=== PATIENT | male | born 1965 | race American Indian/Alaskan Native ===

== ENCOUNTER 2016-12-02 22:36 | Inpatient (IN) | payer MEDICARE ==
[2016-12-02] MEDS ORDERED: SENOKOT PO PRN (22:40)
[2016-12-02] MEDS ORDERED: DULCOLAX PR PRN (22:40)
[2016-12-02] MEDS ORDERED: TYLENOL FEEDTUBE PRN (22:40)
[2016-12-02] MEDS ORDERED: D50W (25GM) IV PRN (22:40)
[2016-12-03 05:12] LABS: Basophils % (Auto) 1.2 % (0.0-1.8); Eosinophils % (Auto) 1.8 % (0.0-4.3); Hematocrit 40.5 % (35.5-45.6); Hemoglobin 13.5 gm/dl (11.8-15.2); Mean Corpuscular HGB Conc 33 % (32-34); Mean Corpuscular Hemoglobin 30 pg (28-32); Mean Corpuscular Volume 91 fl (84-94); Platelet Count 217 K/mm3 (140-440); Red Blood Count 4.46 M/mm3 (3.65-5.03); Red Cell Distribution Width 13.5 % (13.2-15.2); White Blood Count 8.5 K/mm3 (4.5-11.0)
[2016-12-03 05:34] LABS: Alanine Aminotransferase 31 units/L (7-56); Albumin 3.6 g/dL (3.9-5); Albumin/Globulin Ratio 1.2 %; Alkaline Phosphatase 78 units/L (35-129); Bilirubin,Total 0.3 mg/dL (0.1-1.2); Blood Urea Nitrogen 14 mg/dL (9-20); Carbon Dioxide 26 mmol/L (22-30); Glucose 323 mg/dL (75-100); Total Protein 6.6 g/dL (6.3-8.2)
[2016-12-03 05:35] LABS: Anion Gap 15 mmol/L; Chloride 97.7 mmol/L (98-107); Potassium 4.1 mmol/L (3.6-5.0); Sodium 135 mmol/L (137-145)
[2016-12-03] MEDS: NOVOLOG SUB-Q SCH ×4 (08:56→21:47)
[2016-12-03] MEDS: LYRICA PO SCH ×2 (08:58→10:00)
[2016-12-03] MEDS: ASPIRIN PO SCH (08:58)
[2016-12-03] MEDS: PLAVIX PO SCH (08:59)
[2016-12-03] MEDS: LOVENOX SUB-Q SCH (08:59)
[2016-12-03] MEDS: WELLBUTRIN SR PO SCH (08:59)
[2016-12-03] MEDS: ZESTRIL PO SCH (09:00)
[2016-12-03] MEDS: PROTONIX PO SCH (09:00)
[2016-12-03] MEDS: TRICOR PO SCH (09:01)
[2016-12-03] MEDS: NORVASC PO SCH (09:18)
--- NOTE | 2016-12-03 11:48 | History and Physical Report ---
History of Present Illness Date: 12/03/16 Referring Facility: [facility] Date of admission: 12/02/16 22:36 Chief Complaint: acute CVA at posterior limb of the right internal capsule History of present illness: POST ADMISSION PHYSICIAN EVALUATION ONSET DATE: 11/30/2016 IMPAIRMENT GROUP CODE: 01.1 ETIOLOGIC DIAGNOSIS: acute CVA at posterior limb of the right internal capsule STATUS CHANGES SINCE PREADMISSION SCREENING: PAS has been reviewed. In comparison, pt reports bowel incontinence overnight; blood sugars and blood pressure remain uncontrolled; ongoing left sided weakness and left side neglect noted. Pt was able to participate well with therapy evaluations on today. Pt remains an appropriate candidate for IRU admission. PREVIOUS FUNCTIONAL STATUS: Independent with gait, transfers, ADLs CURRENT FUNCTIONAL STATUS: S/U to totalA for ADLs; maxA for transfers; modA for gait x 10 feet HPI 50 y.o. left handed male admitted for CVA work-up after acute onset of left sided weakness. Work-up positive for acute CVA at posterior limb of the right internal capsule. Pt continued with left sided weakness, mild facial droop, dysarthria; also with uncontrolled blood pressure and blood sugars. Pt is now admitted to IRU for aggressive therapies and ongoing medical management. Past History Past Medical History: diabetes, hypertension, hyperlipidemia Past Surgical History: Other (right lower lobectomy) Social history: smoking, other (lives with roommate; has local family support). denies: alcohol abuse Family history: diabetes, hypertension Medications and Allergies Allergies Allergy/AdvReac Type Severity Reaction Status Date / Time No Known Allergies Allergy Unverified 11/30/16 01:37 Home Medications Medication Instructions Recorded Confirmed Last Taken Type Aspirin [Aspirin TAB] 325 mg PO QDAY #30 tablet 12/02/16 12/02/16 Unknown Rx Bisacodyl [Dulcolax suppos] 10 mg SD QDAY PRN #30 supp.rect 12/02/16 12/02/16 Unknown Rx Clopidogrel [Plavix] 75 mg PO QDAY #30 tablet 12/02/16 12/02/16 Unknown Rx Fenofibrate [Lofibra] 160 mg PO DAILY #30 tablet 12/02/16 12/02/16 Unknown Rx Insulin Detemir [Levemir VIAL] 10 unit SQ QHS #1 vial 12/02/16 12/02/16 Unknown Rx Lisinopril [Zestril TAB] 20 mg PO QDAY #30 tablet 12/02/16 12/02/16 Unknown Rx Metformin HCl [Fortamet ER] 1,000 mg PO BID #60 tab.er.24 12/02/16 12/02/16 Unknown Rx Pantoprazole [Protonix TAB] 20 mg PO QDAY #30 tablet. 12/02/16 12/02/16 Unknown Rx Pregabalin [Lyrica] 75 mg PO DAILY #30 capsule 12/02/16 12/02/16 Unknown Rx Simvastatin [Zocor TAB] 20 mg PO QHS #30 tablet 12/02/16 12/02/16 Unknown Rx buPROPion SR [Wellbutrin SR] 150 mg PO DAILY #30 tablet 12/02/16 12/02/16 Unknown Rx Active Meds: Active Medications Acetaminophen (Tylenol) 650 mg FEEDTUBE Q4H PRN PRN Reason: Pain MILD(1-3)/Fever >100.5/[place] Amlodipine Besylate (Norvasc) 10 mg PO QDAY [facility] Last Admin: 12/03/16 09:18 Dose: 10 mg Aspirin (Aspirin) 325 mg PO QDAY [facility] Last Admin: 12/03/16 08:58 Dose: 325 mg Bisacodyl (Dulcolax) 10 mg SD QDAY PRN PRN Reason: Constipation unrelieved by MOM Bupropion HCl (Wellbutrin Sr) 150 mg PO DAILY [facility] Last Admin: 12/03/16 08:59 Dose: 150 mg Clopidogrel Bisulfate (Plavix) 75 mg PO QDAY [facility] Last Admin: 12/03/16 08:59 Dose: 75 mg Dextrose (D50w (25gm)) 50 ml IV PRN PRN PRN Reason: Hypoglycemia Enoxaparin Sodium (Lovenox) 40 mg SUB-Q QDAY [facility] Last Admin: 12/03/16 08:59 Dose: 40 mg Fenofibrate (Tricor) 145 mg PO DAILY [facility] Last Admin: 12/03/16 09:01 Dose: 145 mg Insulin Aspart (Novolog) 0 units SUB-Q ACHS [facility] PRN Reason: Protocol Last Admin: 12/03/16 08:56 Dose: 3 units Lisinopril (Zestril) 20 mg PO QDAY [facility] Last Admin: 12/03/16 09:00 Dose: 20 mg Metformin HCl (Glucophage Xr) 1,000 mg PO BID [facility] Pantoprazole Sodium (Protonix) 20 mg PO QDAY [facility] Last Admin: 12/03/16 09:00 Dose: 20 mg Pregabalin (Lyrica) 75 mg PO DAILY [facility] Last Admin: 12/03/16 08:58 Dose: 75 mg Senna (Senokot) 8.6 mg PO Q12H PRN PRN Reason: Laxative Effect Simvastatin (Zocor) 20 mg PO QHS [facility] Review of Systems All systems: negative Constitutional: no poor appetite Ears, nose, mouth and throat: no headache Cardiovascular: no chest pain Respiratory: no cough Gastrointestinal: no nausea, no vomiting, no constipation Genitourinary Male: no dysuria Neurological: weakness (left extremities) Exam - Constitutional Vitals: Vital Signs - 12hr 12/03/16 12/03/16 12/03/16 07:30 09:00 09:18 Temperature 97.8 F Pulse Rate 86 86 Pulse Rate [ 86 Right Brachial] Blood Pressure 168/100 168/100 Blood Pressure 168/100 [Right Arm] General appearance: no acute distress, other (sitting up in WC) - EENT Eyes: EOM intact ENT: hearing intact - Neck Neck: supple, normal ROM - Respiratory Respiratory effort: normal Respiratory: bilateral: CTA - Cardiovascular Rhythm: regular Heart Sounds: Present: S1 & S2 - Extremities Extremities: No edema - Gastrointestinal General gastrointestinal: Present: soft, non-tender, non-distended, normal bowel sounds - Integumentary Integumentary: Present: clear - Musculoskeletal Musculoskeletal: left sided weakness (flaccid UE and LE) - Neurologic Neurologic: no CNII-XII intact, other (+facial droop, dysarthria; also with decreased sensation at LLE) - Psychiatric Psychiatric: appropriate mood/affect, intact judgment & insight, memory intact, cooperative - Labs CBC & Chem 7: 12/03/16 04:44 12/03/16 04:44 Labs: Laboratory Results - last 72 hr 12/03/16 12/03/16 12/03/16 04:44 04:44 06:12 WBC 8.5 RBC 4.46 Hgb 13.5 Hct 40.5 MCV 91 MCH 30 MCHC 33 RDW 13.5 Plt Count 217 Lymph % (Auto) 25.2 [place] % (Auto) 10.1 H Eos % (Auto) 1.8 Baso % (Auto) 1.2 Lymph # 2.1 [place] # 0.9 H Eos # 0.2 Baso # 0.1 Seg Neutrophils % 61.7 Seg Neutrophils # 5.3 Sodium 135 L Potassium 4.1 Chloride 97.7 L Carbon Dioxide 26 Anion Gap 15 BUN 14 Creatinine 0.8 Estimated GFR > 60 BUN/Creatinine Ratio 17.50 Glucose 323 H POC Glucose 257 H Calcium 9.0 Total Bilirubin 0.3 AST 24 ALT 31 Alkaline Phosphatase 78 Total Protein 6.6 Albumin 3.6 L Albumin/Globulin Ratio 1.2 Assessment and Plan Assessment and plan: 50 y.o. left handed male with acute CVA at posterior limb of the right internal capsule; left flaccid hemiparesis, dysarthria, gait dysfunction secondary to CVA. The patient is medically stable, however, requires ongoing medical management. Pt is appropriate for inpatient rehabilitation admission and is thought to be able to tolerate at least 3 hours of therapy a day, 5 days a week including 1 hour of physical therapy, 1 hour of occupational therapy, and 1 hour of speech therapy. Patient is able to understand and follow basic directions and has attainable rehab goals. Potential barriers/complications include extension/recurrent CVA, falls, aspiration, DVT, PE, depression, paraasthesias, shoulder subluxation, skin breakdown. Plan 1. Rehabilitation- Pt will undergo multidisciplinary/integrative rehab PT/OT/ INTEGRATION ASSISTANT, Nursing. Areas to be addressed include, but are not limited to PT for mobility, strengthening, transfer training, ROM, endurance, stairs, balance; OT for ADLs, household tasks, adaptive equipment; INTEGRATION ASSISTANT for dysarthria, compensatory techniques; Nursing for carryover of therapies, pain control, education, skin integrity, medication management, bowel/bladder management; Nutrition as needed ; creative services designer for discharge planning and equipment needs. Potential interventions include appropriate assistive device or adaptive equipment. Expected overall level of functional improvement by discharge is [place] to supervision for gait, transfers, and ADLs. Pt will tentatively be discharged home with outpatient PT/OT/INTEGRATION ASSISTANT. Estimated length of stay is 2-3 weeks. 2. s/p CVA- continue ASA and statin 3. HTN- continue lisinopril; restart norvasc 4. DM- continue metformin; restart levemir, slowly increase as needed; ADA diet 5. HLD- statin, tricor 6. DVT px- lovenox - Patient Problems (1) CVA (cerebral vascular accident) Current Visit: No Status: Acute Qualifiers: CVA mechanism: other Precerebral and cerebral artery: P Laterality of affected vessel: L Qualified Code(s): I63.8 - Other cerebral infarction (2) Hemiparesis affecting left side as late effect of cerebrovascular accident Current Visit: Yes Status: Acute (3) Left foot drop Current Visit: Yes Status: Acute (4) HLD (hyperlipidemia) Current Visit: Yes Status: Chronic Qualifiers: Hyperlipidemia type: mixed hyperlipidemia Qualified Code(s): E78.2 - Mixed hyperlipidemia (5) HTN (hypertension) Current Visit: Yes Status: Chronic Qualifiers: Hypertension type: essential hypertension Qualified Code(s): I10 - Essential (primary) hypertension (6) Diabetes Current Visit: Yes Status: Chronic Qualifiers: Diabetes mellitus type: type 2 Diabetes mellitus complication status: with hyperglycemia Diabetes mellitus complication detail: D Diabetic retinopathy severity: D Proliferative retinopathy type: P Diabetes mellitus macular edema: D Diabetes mellitus detention insulin use: with detention use Laterality: L Chronic kidney disease stage: C Qualified Code(s): E11.65 - Type 2 diabetes mellitus with hyperglycemia; Z79.4 - custodial (current) use of insulin
[2016-12-03] MEDS: GLUCOPHAGE XR PO SCH ×2 (12:52→21:46)
--- NOTE | 2016-12-03 18:06 | Progress Note ---
Subjective - Reason for Consult Consult date: 12/03/16 Reason for consult: psychiatric follow-up - Chief Complaint Chief complaint: Mr. Locke was seen after arrival on the medical floor for CVA. Initial psychiatric consultation was done for concerns with altered mental status concerns with delirium. Since then he has been alert and oriented and without concerns for confusion or unusual behavior. Mental Status Exam - Vital signs Last Vital Signs Temp 97.8 F 12/03/16 07:30 Pulse 92 H 12/03/16 16:00 Resp 20 12/03/16 16:00 BP 147/97 12/03/16 16:00 Pulse Ox 99 12/03/16 16:00 - Exam Narrative exam: Left hemiparesis No suicidal or homicidal ideation. No auditory or visual hallucinations. He denies depression or anxiety. Orientation: time, place, person Affect: normal Mood: appropriate Thought content: other (no suicidal or homicidal ideation) Thought Process: Intact Perceptions: none Speech: normal rate and pattern Concentration: focused Motor activity: other (affected by CVA) Level of consciousness: alert Memory: Intact Sleep Symptoms: None Interaction: cooperative Assessment and Plan At this time, Mr. Navarro no longer needs psychiatric services. Evaluation for concerns with delirium and altered mental status has been resolved. Recommendation: Consider consultation with psychiatry again if needed, particularly for post stroke depression, changes in behavior, or change in mental status.
[2016-12-03] MEDS: LEVEMIR SUB-Q SCH (21:46)
[2016-12-03] MEDS: ZOCOR PO SCH (21:46)
[2016-12-04] MEDS: LOVENOX SUB-Q SCH (08:28)
[2016-12-04] MEDS: NOVOLOG SUB-Q SCH ×4 (08:29→23:46)
[2016-12-04] MEDS: GLUCOPHAGE XR PO SCH ×2 (08:30→23:38)
[2016-12-04] MEDS: PLAVIX PO SCH (08:30)
[2016-12-04] MEDS: PROTONIX PO SCH (08:31)
[2016-12-04] MEDS: ZESTRIL PO SCH (08:31)
[2016-12-04] MEDS: NORVASC PO SCH (08:32)
[2016-12-04] MEDS: ASPIRIN PO SCH (08:34)
[2016-12-04] MEDS: TRICOR PO SCH (09:08)
[2016-12-04] MEDS: LYRICA PO SCH (09:08)
[2016-12-04] MEDS: WELLBUTRIN SR PO SCH (09:09)
--- NOTE | 2016-12-04 09:37 | IRU Plan of Care ---
Interdisciplinary Plan of Care - IP IRU INTERDISCIPLINARY PLAN: [facility] Inpatient Rehab Unit Plan of Care IRU Interdisciplinary Care Plan Start: 12/02/16 22: 45 Freq: Admission then PRN Status: Active Document 12/04/16 09:18 DB (Rec: 12/04/16 09:35 DB [id number]) Interdisciplinary Problem List Interdisciplinary Problem List Interdisciplinary Problem List Impaired Eating/Swallowing Query Text:Answers will Trigger Problems Impaired Bathing/Grooming and Outcomes on Worklist. Impaired Dressing Impaired Mobility Impaired Transfers Impaired Problem Solving Impaired Memory Impaired Home Management Impaired Safety IRU Interdisciplinary Care Plan Therapy Services Therapy Services Will Include: Physical Therapy Query Text:Patient will be seen for a Occupational Therapy minimum of 3 hours of daily therapy 5 Speech Therapy out of 7 days a week. Therapy intensity may be adjusted within a 7 consecutive day period to effectively serve the individual needs of the patient. Treatment Frequency/Intensity/Duration Treatment Frequency 5 days per week Treatment Intensity 1 hour per discipline (PT/OT/ AUTOMATION TECHNOLOGIST) daily Treatment Duration 10-14 days Problem Area: Eating/Swallowing Eating/Swallowing Outcomes Consume Least Restrictive Diet Eating/Swallowing Interventions Dysphagia Training Patient/Caregiver Education Problem Area: Bathing/Grooming Bathing/Grooming Outcomes Improve [place] w/ Grooming Improve [place] w/ Bathing Bathing/Grooming Interventions ADL Training Use of Assistive Devices Therapeutic Activity Balance Work Activity Tolerance Work Patient/Caregiver Education Problem Area: Dressing Dressing Outcomes Improve [place] w/ UB Dressing Improve Spencer w/ LB Dressing Dressing Interventions ADL Training Patient/Caregiver Education Problem Area: Mobility Mobility Outcomes Improve [place] w/ Bed Mobility Improve Spencer w/ Ambulation Improve Spencer w/ Stairs /Curb Improve Spencer w/ Wheelchair Mobility Interventions Therapeutic Exercise Neuromuscular Re-Ed. Modalities Use of Assistive Devices Patient/Caregiver Education Bed Mobility Work Gait Training W/C Mobility Work Problem Area: Transfers Transfers Outcomes Improve [place] w/ Bed Transfers Improve Spencer w/ Toilet Transfers Improve Spencer w/ Tub/ Shower Transfers Improve [place] w/ Car Transfers Transfers Interventions Transfer Training Therapeutic Exercise Neuromuscular Re-Education Modalities Use of Assistive Devices Patient/Caregiver Education Problem Area: Bowel/Bladder Managment Bowel/Bladder Outcomes Bowel/Bladder Interventions Problem Area: Toileting Toileting Outcomes Improve Spencer w/ Toileting Toileting Interventions ADL Training Balance Work Patient/Caregiver Education Problem Area: Nutrition Nutrition Outcomes Understand and Comply w/ Diet Improve/Maintain Oral Intake Nutrition Interventions Nutritional Counseling Monitor Nutrient Intake Patient/Caregiver Education Problem Area: Comprehension Comprehension Outcomes Comprehension Interventions Problem Area: Expression Expression Outcomes Expression Interventions Problem Area: Problem Solving Problem Solving Outcomes Improve Problem Solving Problem Solving Interventions Cognitive Training Visual/Perceptual Training Safety Education Patient/Caregiver Education Problem Area: Memory Memory Outcomes Memory Interventions Problem Area: Pain Management Pain Management Outcomes Demonstrate/Verbalize Pain Strategies Pain Management Interventions Medication Management Positioning/Turning Patient/Caregiver Education Problem Area: Knowledge Deficits Knowledge Deficits Outcomes Verbalize Precautions Knowledge Deficits Interventions Disease/Injury/Sx. Intervention Education Body Mechanics/Joint Protection Education Disease Management Education Health Maintainence Education Safety Education Problem Area: Skin/Tissue Integrity Skin/Tissue Integrity Outcomes Exhibit Healing of Wound/ Incision Demonstrate Understanding of Pressure Relief Skin/Tissue Integrity Interventions Skin/Wound Care Pressure Relief Instruction Dressing Change Education Positioning/Turning Problem Area: Social Interaction Social Interaction Outcomes Social Interaction Interventions Problem Area: Adjustment to Disability Adjustment to Disability Outcomes Adjustment to Disability Interventions Problem Area: Discharge Concerns Discharge Concerns Outcomes Discharge Home w/ Necessary Equipment Have Home Health/Outpatient Services Discharge Concerns Interventions Discharge Planning Family/Caregiver Conference Family/Caregiver Training Problem Area: Community Reintegration Community Reintegration Outcomes Demonstrate Understanding of Community Resources Community Reintegration Interventions Provide Community Resources Problem Area: Home Management Home Management Outcomes Improve Spencer w/ Home Management Home Management Interventions Activity Tolerance Work Patient/Caregiver Education Problem Area: Safety Safety Outcomes Provide Safe Environment Perform Selfcare Safely Safety Interventions Identify Fall Risk [place] Pt. to Environment Reduce Environmental Hazards Problem Area: Medication Education Medication Education Outcomes Patient/Caregiver will Verbalize Understanding of Medications Medication Education Interventions Explain Administration/Side Effects/Interactions Problem Area: Diabetes Education Diabetes Education Outcomes Demonstrate Knowledge of Resources Availlable in Diabetic Ed. Folder Diabetes Education Interventions Give Pt. Diabetes Education Folder Discuss Pathophysiology of Diabetes Problem Area: Oxygenation Oxygenation Outcomes Oxygenation Interventions Problem Area: Cardiovascular Cardiovascular Outcomes Cardiovascular Interventions Physician Only Medical Prognosis and Rehabilitation Patient demonstrates good Potential (Completed by Physician) rehab potential. Medical Prognosis: Good This plan of care has been developed based on the findings from the pre- admission assessment, post admission physician evaluation, information gathered from the assessments from all therapy disciplines and other pertinent clinicians. The plan of care has been reviewed and discussed in collaboration with the interdisciplinary team. The plan of care will be reviewed and updated at least weekly. 50 y.o. left handed male with acute CVA at posterior limb of the right internal capsule; left flaccid hemiparesis, dysarthria, gait dysfunction secondary to CVA. The patient remains at risk for extension/recurrent CVA, falls, aspiration , DVT, PE, depression, parasthesias, shoulder subluxation, skin breakdown. Pt will need ongoing management of HTN and DM; currently tolerating therapies. Pt continues with left sided weakness and functional deficits. Pt remains an appropriate candidate for IRU admission.
[2016-12-04] MEDS ORDERED: FLUARIX QUAD 2016-2017(36 MOS+) IM ONE ×2 (12:00→17:00)
--- NOTE | 2016-12-04 13:41 | Progress Note ---
Assessment and Plan 50 y.o. left handed male with acute CVA at posterior limb of the right internal capsule; left flaccid hemiparesis, dysarthria, gait dysfunction secondary to CVA - s/p CVA- ASA, statin - HTN- continue lisinopril and norvasc - DM- continue metformin; levemir restarted on yesterday, follow and slowly increase as needed; ADA diet - DVT px- lovenox - team conference held on today- pt is supervision for eating; Shyla for grooming , modA for bathing, maxA fro UB Dressing, transfers, bed mobility, and gait; ambulating 15 feet with HW and AFO; totalA for LB dressing and toileting; maxA for problem solving and memory. Barriers- left sided weakness, left side neglect. Anticipated d/c 12/23/2016 - Patient Problems (1) CVA (cerebral vascular accident) Current Visit: No Status: Acute Qualifiers: CVA mechanism: other Precerebral and cerebral artery: P Laterality of affected vessel: L Qualified Code(s): I63.8 - Other cerebral infarction (2) Hemiparesis affecting left side as late effect of cerebrovascular accident Current Visit: Yes Status: Acute (3) Left foot drop Current Visit: Yes Status: Acute (4) HTN (hypertension) Current Visit: Yes Status: Chronic Qualifiers: Hypertension type: essential hypertension Qualified Code(s): I10 - Essential (primary) hypertension (5) Diabetes Current Visit: Yes Status: Chronic Qualifiers: Diabetes mellitus type: type 2 Diabetes mellitus complication status: with hyperglycemia Diabetes mellitus complication detail: D Diabetic retinopathy severity: D Proliferative retinopathy type: P Diabetes mellitus macular edema: D Diabetes mellitus vermin exterminator insulin use: with mcfp use Laterality: L Chronic kidney disease stage: C Qualified Code(s): E11.65 - Type 2 diabetes mellitus with hyperglycemia; Z79.4 - intermodal customer service (current) use of insulin Subjective Date of service: 12/04/16 Principal diagnosis: acute CVA at posterior limb of the right internal capsule Interval history: Pt seen in dining room this AM, F/U IPR course, s/p acute CVA at posterior limb of the right internal capsule. Pt reports mild lightheadedness with standing on today Objective - Constitutional Vitals: Vital Signs - 12hr 12/04/16 12/04/16 12/04/16 08:31 08:32 08:55 Temperature Pulse Rate 83 83 Pulse Rate [ 83 Apical] Respiratory Rate Blood Pressure 149/94 149/94 Blood Pressure [Right Arm] O2 Sat by Pulse Oximetry 12/04/16 12/04/16 10:00 10:20 Temperature 98.1 F Pulse Rate Pulse Rate [ 83 83 Apical] Respiratory 20 Rate Blood Pressure Blood Pressure 149/54 [Right Arm] O2 Sat by Pulse 99 Oximetry General appearance: Present: no acute distress, other (seated in WC) - EENT Eyes: EOM intact ENT: hearing intact - Neck Neck: supple, normal ROM - Respiratory Respiratory effort: normal Extremities: No edema Extremity abnormal: other (no pain with LUE PROM; no spasticity noted) - Integumentary Integumentary: clear - Musculoskeletal Musculoskeletal: left sided weakness - Psychiatric Psychiatric: appropriate mood/affect, cooperative - Labs CBC & Chem 7: 12/03/16 04:44 12/03/16 04:44 Labs: Abnormal lab results 12/03/16 12/03/16 Range/Units 16:39 21:05 POC Glucose 250 H 247 H (70-105)
[2016-12-04] MEDS: ZOCOR PO SCH (23:37)
[2016-12-04] MEDS: LEVEMIR SUB-Q SCH (23:45)
[2016-12-05] MEDS ORDERED: ZESTRIL PO SCH (08:49)
[2016-12-05] MEDS: NOVOLOG SUB-Q SCH ×3 (09:51→17:47)
[2016-12-05] MEDS: TRICOR PO SCH (10:02)
[2016-12-05] MEDS: ASPIRIN PO SCH (10:03)
[2016-12-05] MEDS: LYRICA PO SCH (10:03)
[2016-12-05] MEDS: NORVASC PO SCH (10:03)
[2016-12-05] MEDS: PROTONIX PO SCH (10:03)
[2016-12-05] MEDS: PLAVIX PO SCH (10:03)
[2016-12-05] MEDS: GLUCOPHAGE XR PO SCH (10:04)
[2016-12-05] MEDS: LOVENOX SUB-Q SCH (10:04)
[2016-12-05] MEDS: WELLBUTRIN SR PO SCH (10:04)
[2016-12-05] MEDS: ZESTRIL PO SCH ×2 (10:20→13:17)
--- NOTE | 2016-12-05 16:28 | Progress Note ---
Assessment and Plan 50 y.o. left handed male with acute CVA at posterior limb of the right internal capsule; left flaccid hemiparesis, dysarthria, gait dysfunction secondary to CVA - s/p CVA- ASA, statin - gait dysfunction secondary to CVA- ambulated up to 15 feet; ongoing gait training - LE spasms secondary to CVA- add Baclofen QHS; follow for lethargy - HTN- elevated; lisinopril increased on today; follow - DM- will increase Levemir for better glucose control - DVT px- lovenox - Patient Problems (1) CVA (cerebral vascular accident) Current Visit: No Status: Acute Qualifiers: CVA mechanism: other Precerebral and cerebral artery: P Laterality of affected vessel: L Qualified Code(s): I63.8 - Other cerebral infarction (2) Hemiparesis affecting left side as late effect of cerebrovascular accident Current Visit: Yes Status: Acute (3) Left foot drop Current Visit: Yes Status: Acute (4) HTN (hypertension) Current Visit: Yes Status: Chronic Qualifiers: Hypertension type: essential hypertension Qualified Code(s): I10 - Essential (primary) hypertension (5) Diabetes Current Visit: Yes Status: Chronic Qualifiers: Diabetes mellitus type: type 2 Diabetes mellitus complication status: with hyperglycemia Diabetes mellitus complication detail: D Diabetic retinopathy severity: D Proliferative retinopathy type: P Diabetes mellitus macular edema: D Diabetes mellitus mcfp insulin use: with petroleum terminal plant operator use Laterality: L Chronic kidney disease stage: C Qualified Code(s): E11.65 - Type 2 diabetes mellitus with hyperglycemia; Z79.4 - middle or intermediate school principal (current) use of insulin (6) Abnormality of gait following cerebrovascular accident (CVA) Current Visit: Yes Status: Acute (7) Muscle spasm of left lower extremity Current Visit: Yes Status: Acute Subjective Date of service: 12/05/16 Principal diagnosis: acute CVA at posterior limb of the right internal capsule Interval history: Pt seen in ASSESSMENT CONSULTANT on today, F/U IPR course, s/p acute CVA at posterior limb of the right internal capsule. No further dizziness/lightheadedness; reports spasms in left extremities at night interrupting ability to sleep Objective - Constitutional Vitals: Vital Signs - 12hr 12/05/16 12/05/16 07:19 10:03 Temperature 98.4 F Pulse Rate 88 Pulse Rate [ 88 Right Brachial] Respiratory 20 Rate Blood Pressure 156/92 Blood Pressure 156/92 [Right Arm] O2 Sat by Pulse 100 Oximetry General appearance: Present: no acute distress - EENT Eyes: EOM intact ENT: hearing intact - Neck Neck: supple, normal ROM - Respiratory Respiratory effort: normal Extremities: No edema - Integumentary Integumentary: clear - Musculoskeletal Musculoskeletal: left sided weakness - Psychiatric Psychiatric: appropriate mood/affect, cooperative - Allied health notes Allied health notes reviewed: OT (min-modA for UB dressing and transfers) - Labs CBC & Chem 7: 12/03/16 04:44 12/03/16 04:44
[2016-12-05] MEDS: LIORESAL PO SCH (22:00)
[2016-12-06] MEDS: LEVEMIR SUB-Q SCH ×2 (00:10→21:54)
[2016-12-06] MEDS: LOVENOX SUB-Q SCH (09:32)
[2016-12-06] MEDS: LYRICA PO SCH (09:32)
[2016-12-06] MEDS: TRICOR PO SCH (09:32)
[2016-12-06] MEDS: PROTONIX PO SCH (09:33)
[2016-12-06] MEDS: NORVASC PO SCH (09:33)
[2016-12-06] MEDS: ASPIRIN PO SCH (09:33)
[2016-12-06] MEDS: ZESTRIL PO SCH (09:34)
[2016-12-06] MEDS: PLAVIX PO SCH (09:34)
[2016-12-06] MEDS: GLUCOPHAGE XR PO SCH ×2 (09:36→21:53)
[2016-12-06] MEDS: NOVOLOG SUB-Q SCH ×5 (09:36→21:54)
[2016-12-06] MEDS: WELLBUTRIN SR PO SCH (12:32)
[2016-12-06] MEDS: LIORESAL PO SCH (21:52)
[2016-12-06] MEDS: ZOCOR PO SCH (21:53)
[2016-12-07] MEDS: PLAVIX PO SCH (08:47)
[2016-12-07] MEDS: NOVOLOG SUB-Q SCH ×4 (08:47→22:23)
[2016-12-07] MEDS: PROTONIX PO SCH (08:48)
[2016-12-07] MEDS: ZESTRIL PO SCH (08:48)
[2016-12-07] MEDS: NORVASC PO SCH (08:49)
[2016-12-07] MEDS: ASPIRIN PO SCH (08:49)
[2016-12-07] MEDS: LOVENOX SUB-Q SCH (08:51)
[2016-12-07] MEDS: GLUCOPHAGE XR PO SCH ×2 (08:51→22:21)
[2016-12-07] MEDS: WELLBUTRIN SR PO SCH (09:01)
[2016-12-07] MEDS: LYRICA PO SCH (09:01)
[2016-12-07] MEDS: TRICOR PO SCH (09:02)
[2016-12-07] MEDS: LIORESAL PO SCH (22:20)
[2016-12-07] MEDS: ZOCOR PO SCH (22:23)
[2016-12-07] MEDS: LEVEMIR SUB-Q SCH (22:26)
[2016-12-08] MEDS: NOVOLOG SUB-Q SCH ×3 (07:30→16:30)
[2016-12-08] MEDS: GLUCOPHAGE XR PO SCH ×3 (09:47→21:39)
[2016-12-08] MEDS: LYRICA PO SCH (09:47)
[2016-12-08] MEDS: PLAVIX PO SCH (09:48)
[2016-12-08] MEDS: ASPIRIN PO SCH (09:48)
[2016-12-08] MEDS: LOVENOX SUB-Q SCH (09:48)
[2016-12-08] MEDS: TRICOR PO SCH (09:48)
[2016-12-08] MEDS: PROTONIX PO SCH (09:55)
[2016-12-08] MEDS: NORVASC PO SCH (09:55)
[2016-12-08] MEDS: WELLBUTRIN SR PO SCH (09:56)
[2016-12-08] MEDS: HCTZ PO SCH (10:02)
[2016-12-08] MEDS: ZESTRIL PO SCH (10:03)
--- NOTE | 2016-12-08 15:43 | Progress Note ---
Assessment and Plan 50 y.o. left handed male with acute CVA at posterior limb of the right internal capsule; left flaccid hemiparesis, dysarthria, gait dysfunction secondary to CVA - s/p CVA- ASA, statin - gait dysfunction secondary to CVA- ongoing gait training; progress from parallel bars to assistive device - LE spasms secondary to CVA- increase Baclofen to 10mg QHS; follow for lethargy - HTN- remains elevated; HCTZ added on today; follow - DM- increase Levemir towards home dose for better glucose control - DVT px- lovenox - Patient Problems (1) CVA (cerebral vascular accident) Current Visit: No Status: Acute Qualifiers: CVA mechanism: other Precerebral and cerebral artery: P Laterality of affected vessel: L Qualified Code(s): I63.8 - Other cerebral infarction (2) Hemiparesis affecting left side as late effect of cerebrovascular accident Current Visit: Yes Status: Acute (3) Left foot drop Current Visit: Yes Status: Acute (4) HTN (hypertension) Current Visit: Yes Status: Chronic Qualifiers: Hypertension type: essential hypertension Qualified Code(s): I10 - Essential (primary) hypertension (5) Diabetes Current Visit: Yes Status: Chronic Qualifiers: Diabetes mellitus type: type 2 Diabetes mellitus complication status: with hyperglycemia Diabetes mellitus complication detail: D Diabetic retinopathy severity: D Proliferative retinopathy type: P Diabetes mellitus macular edema: D Diabetes mellitus group home insulin use: with adjunct faculty for medical terminology use Laterality: L Chronic kidney disease stage: C Qualified Code(s): E11.65 - Type 2 diabetes mellitus with hyperglycemia; Z79.4 - [facility] (current) use of insulin (6) Abnormality of gait following cerebrovascular accident (CVA) Current Visit: Yes Status: Acute (7) Muscle spasm of left lower extremity Current Visit: Yes Status: Acute Subjective Date of service: 12/08/16 Principal diagnosis: acute CVA at posterior limb of the right internal capsule Interval history: Pt seen in room on today, F/U IPR course, s/p acute CVA at posterior limb of the right internal capsule. Continues with intermittent spasms at left extremities Objective - Constitutional Vitals: Vital Signs - 12hr 12/08/16 12/08/16 12/08/16 07:30 09:55 10:03 Temperature 97.6 F Pulse Rate 84 84 Pulse Rate [ 92 H Right Brachial] Respiratory 20 Rate Blood Pressure 160/110 [Right Arm] O2 Sat by Pulse 98 Oximetry General appearance: Present: no acute distress - EENT Eyes: EOM intact ENT: hearing intact - Neck Neck: supple, normal ROM - Respiratory Respiratory effort: normal Respiratory: bilateral: CTA - Cardiovascular Rhythm: regular Heart Sounds: Present: S1 & S2 Extremities: No edema - Gastrointestinal General gastrointestinal: Present: soft, non-tender, non-distended, normal bowel sounds - Integumentary Integumentary: clear - Musculoskeletal Musculoskeletal: left sided weakness - Psychiatric Psychiatric: appropriate mood/affect, cooperative - Allied health notes Allied health notes reviewed: PT (modA for transfers; supervision for wheelchair mobility), OT (min-maxA for ADLs) - Labs CBC & Chem 7: 12/03/16 04:44 12/03/16 04:44 Labs: Abnormal lab results 12/02/16 12/04/16 12/04/16 Range/Units 21:39 06:31 11:53 POC Glucose 256 H 231 H 209 H (70-105) 12/04/16 12/04/16 12/05/16 Range/Units 17:00 21:21 06:43 POC Glucose 232 H 358 H 280 H (70-105) 12/05/16 12/05/16 12/05/16 Range/Units 11:56 16:50 21:09 POC Glucose 225 H 190 H 270 H (70-105) 12/06/16 12/06/16 12/06/16 Range/Units 06:55 11:39 16:32 POC Glucose 204 H 302 H 159 H (70-105) 12/06/16 12/07/16 12/07/16 Range/Units 21:14 06:28 11:31 POC Glucose 111 H 326 H 215 H (70-105) 12/07/16 12/07/16 12/08/16 Range/Units 16:37 21:31 06:55 POC Glucose 234 H 266 H 241 H (70-105) 12/08/16 Range/Units 12:00 POC Glucose 234 H (70-105)
[2016-12-08] MEDS: LIORESAL PO SCH (21:38)
[2016-12-08] MEDS: ZOCOR PO SCH (21:39)
[2016-12-08] MEDS: LEVEMIR SUB-Q SCH (22:26)
[2016-12-09] MEDS: NORVASC PO SCH (08:45)
[2016-12-09] MEDS: PLAVIX PO SCH (08:46)
[2016-12-09] MEDS: HCTZ PO SCH (08:46)
[2016-12-09] MEDS: PROTONIX PO SCH (08:46)
[2016-12-09] MEDS: ZESTRIL PO SCH (08:46)
[2016-12-09] MEDS: LOVENOX SUB-Q SCH (08:47)
[2016-12-09] MEDS: GLUCOPHAGE XR PO SCH ×2 (08:47→21:37)
[2016-12-09] MEDS: NOVOLOG SUB-Q SCH ×5 (08:48→21:34)
[2016-12-09] MEDS: ASPIRIN PO SCH (08:52)
[2016-12-09] MEDS: TRICOR PO SCH (09:21)
[2016-12-09] MEDS: LYRICA PO SCH (09:21)
[2016-12-09] MEDS: WELLBUTRIN SR PO SCH (09:21)
--- NOTE | 2016-12-09 15:57 | Progress Note ---
Assessment and Plan 50 y.o. left handed male with acute CVA at posterior limb of the right internal capsule; left flaccid hemiparesis, dysarthria, gait dysfunction secondary to CVA - s/p CVA- ASA, statin - gait dysfunction secondary to CVA- modA for 18 feet on today with HW; continue gait training with PT - LE spasms secondary to CVA- maintain Baclofen at 10mg QHS - HTN- stable on current regimen; continue to follow - DM- slowly improving; continue on 20U levemir; adjust as needed - DVT px- lovenox - Patient Problems (1) CVA (cerebral vascular accident) Current Visit: No Status: Acute Qualifiers: CVA mechanism: other Precerebral and cerebral artery: P Laterality of affected vessel: L Qualified Code(s): I63.8 - Other cerebral infarction (2) Hemiparesis affecting left side as late effect of cerebrovascular accident Current Visit: Yes Status: Acute (3) Left foot drop Current Visit: Yes Status: Acute (4) HTN (hypertension) Current Visit: Yes Status: Chronic Qualifiers: Hypertension type: essential hypertension Qualified Code(s): I10 - Essential (primary) hypertension (5) Diabetes Current Visit: Yes Status: Chronic Qualifiers: Diabetes mellitus type: type 2 Diabetes mellitus complication status: with hyperglycemia Diabetes mellitus complication detail: D Diabetic retinopathy severity: D Proliferative retinopathy type: P Diabetes mellitus macular edema: D Diabetes mellitus long-term insulin use: with long-term use Laterality: L Chronic kidney disease stage: C Qualified Code(s): E11.65 - Type 2 diabetes mellitus with hyperglycemia; Z79.4 - home health clinician (current) use of insulin (6) Abnormality of gait following cerebrovascular accident (CVA) Current Visit: Yes Status: Acute (7) Muscle spasm of left lower extremity Current Visit: Yes Status: Acute Subjective Date of service: 12/09/16 Principal diagnosis: acute CVA at posterior limb of the right internal capsule Interval history: Pt seen in room on today, F/U IPR course, s/p acute CVA at posterior limb of the right internal capsule. Reports much improved sleep on yesterday Objective - Constitutional Vitals: Vital Signs - 12hr 12/09/16 12/09/16 07:28 08:45 Temperature 98.0 F Pulse Rate 86 Pulse Rate [ 86 Right Brachial] Respiratory 18 Rate Blood Pressure 152/92 Blood Pressure 152/92 [Right Arm] O2 Sat by Pulse 100 Oximetry General appearance: Present: no acute distress, other (sitting up in WC) - EENT Eyes: EOM intact ENT: hearing intact - Neck Neck: supple, normal ROM - Respiratory Respiratory effort: normal - Integumentary Integumentary: clear - Musculoskeletal Musculoskeletal: left sided weakness - Psychiatric Psychiatric: appropriate mood/affect, cooperative - Allied health notes Allied health notes reviewed: PT (CGA-SBA for transfers; modA for gait), OT (SBA -maxA for ADLs) - Labs CBC & Chem 7: 12/03/16 04:44 12/03/16 04:44 Labs: Abnormal lab results 12/08/16 12/08/16 12/08/16 Range/Units 12:00 16:54 21:58 POC Glucose 234 H 182 H 243 H (70-105) 12/09/16 12/09/16 Range/Units 06:27 12:05 POC Glucose 261 H 191 H (70-105)
[2016-12-09] MEDS: LEVEMIR SUB-Q SCH (21:33)
[2016-12-09] MEDS: LIORESAL PO SCH (21:34)
[2016-12-09] MEDS: ZOCOR PO SCH (21:35)
[2016-12-10] MEDS: NOVOLOG SUB-Q SCH ×4 (08:48→21:37)
[2016-12-10] MEDS: GLUCOPHAGE XR PO SCH ×2 (08:48→21:35)
[2016-12-10] MEDS: ZESTRIL PO SCH (08:49)
[2016-12-10] MEDS: LOVENOX SUB-Q SCH (08:49)
[2016-12-10] MEDS: ASPIRIN PO SCH (08:49)
[2016-12-10] MEDS: HCTZ PO SCH (08:49)
[2016-12-10] MEDS: NORVASC PO SCH (08:50)
[2016-12-10] MEDS: PLAVIX PO SCH (08:50)
[2016-12-10] MEDS: PROTONIX PO SCH (08:50)
[2016-12-10] MEDS: WELLBUTRIN SR PO SCH (09:03)
[2016-12-10] MEDS: LYRICA PO SCH (09:03)
[2016-12-10] MEDS: TRICOR PO SCH (09:03)
--- NOTE | 2016-12-10 11:47 | Progress Note ---
Assessment and Plan 50 y.o. left handed male with acute CVA at posterior limb of the right internal capsule; left flaccid hemiparesis, dysarthria, gait dysfunction secondary to CVA - s/p CVA- ASA, statin - gait dysfunction secondary to CVA- progressed from parallel bars to kendal- walker on yesterday; ongoing gait training - left foot drop- will likely require AFO at discharge - LE spasms secondary to CVA- stable on Baclofen 10mg QHS - HTN- stable - DM- education provided; continue on 20U levemir; follow blood sugars - DVT px- lovenox - Patient Problems (1) CVA (cerebral vascular accident) Current Visit: No Status: Acute Qualifiers: CVA mechanism: other Precerebral and cerebral artery: P Laterality of affected vessel: L Qualified Code(s): I63.8 - Other cerebral infarction (2) Hemiparesis affecting left side as late effect of cerebrovascular accident Current Visit: Yes Status: Acute (3) Left foot drop Current Visit: Yes Status: Acute (4) HTN (hypertension) Current Visit: Yes Status: Chronic Qualifiers: Hypertension type: essential hypertension Qualified Code(s): I10 - Essential (primary) hypertension (5) Diabetes Current Visit: Yes Status: Chronic Qualifiers: Diabetes mellitus type: type 2 Diabetes mellitus complication status: with hyperglycemia Diabetes mellitus complication detail: D Diabetic retinopathy severity: D Proliferative retinopathy type: P Diabetes mellitus macular edema: D Diabetes mellitus manager intermediate insulin use: with fci use Laterality: L Chronic kidney disease stage: C Qualified Code(s): E11.65 - Type 2 diabetes mellitus with hyperglycemia; Z79.4 - [facility] (current) use of insulin (6) Abnormality of gait following cerebrovascular accident (CVA) Current Visit: Yes Status: Acute (7) Muscle spasm of left lower extremity Current Visit: Yes Status: Acute Subjective Date of service: 12/10/16 Principal diagnosis: acute CVA at posterior limb of the right internal capsule Interval history: Pt seen in room this AM, F/U IPR course, s/p acute CVA at posterior limb of the right internal capsule. Diabetes education provided this AM Objective - Constitutional Vitals: Vital Signs - 12hr 12/10/16 12/10/16 12/10/16 08:15 08:49 08:50 Temperature 97.8 F Pulse Rate 86 86 Pulse Rate [ 85 Apical] Pulse Rate [ Right Brachial] Respiratory 20 Rate Blood Pressure 140/80 140/80 Blood Pressure 151/100 [Right Arm] O2 Sat by Pulse 99 Oximetry 12/10/16 10:00 Temperature Pulse Rate Pulse Rate [ Apical] Pulse Rate [ 96 H Right Brachial] Respiratory 20 Rate Blood Pressure Blood Pressure [Right Arm] O2 Sat by Pulse 100 Oximetry General appearance: Present: no acute distress - EENT Eyes: EOM intact ENT: hearing intact - Neck Neck: supple, normal ROM - Respiratory Respiratory effort: normal Extremities: No edema - Gastrointestinal General gastrointestinal: Present: soft, non-tender - Integumentary Integumentary: clear - Musculoskeletal Musculoskeletal: left sided weakness (LUE flaccid; LLE- 2/5, except trace ankle dorsiflexion) - Psychiatric Psychiatric: appropriate mood/affect, cooperative - Allied health notes Allied health notes reviewed: OT (Shyla for bathing and dressing; modA for shower transfers; supervision for grooming) - Labs CBC & Chem 7: 12/03/16 04:44 12/03/16 04:44 Labs: Abnormal lab results 12/09/16 12/09/16 12/09/16 Range/Units 12:05 17:24 21:11 POC Glucose 191 H 108 H 205 H (70-105) 12/10/16 12/10/16 Range/Units 06:03 11:22 POC Glucose 318 H 185 H (70-105)
[2016-12-10] MEDS: LIORESAL PO SCH (21:35)
[2016-12-10] MEDS: LEVEMIR SUB-Q SCH (21:35)
[2016-12-10] MEDS: ZOCOR PO SCH (21:36)
[2016-12-11] MEDS: ASPIRIN PO SCH (08:59)
[2016-12-11] MEDS: GLUCOPHAGE XR PO SCH ×2 (08:59→21:48)
[2016-12-11] MEDS: HCTZ PO SCH (08:59)
[2016-12-11] MEDS: NOVOLOG SUB-Q SCH ×4 (09:01→21:50)
[2016-12-11] MEDS: TRICOR PO SCH (09:02)
[2016-12-11] MEDS: PROTONIX PO SCH (09:02)
[2016-12-11] MEDS: NORVASC PO SCH (09:02)
[2016-12-11] MEDS: LYRICA PO SCH (09:02)
[2016-12-11] MEDS: ZESTRIL PO SCH (09:03)
[2016-12-11] MEDS: PLAVIX PO SCH (09:03)
[2016-12-11] MEDS: WELLBUTRIN SR PO SCH (09:04)
[2016-12-11] MEDS: LOVENOX SUB-Q SCH (09:04)
--- NOTE | 2016-12-11 14:58 | Progress Note ---
Assessment and Plan 50 y.o. left handed male with acute CVA at posterior limb of the right internal capsule; left flaccid hemiparesis, dysarthria, gait dysfunction secondary to CVA - s/p CVA- ASA, statin - gait dysfunction secondary to CVA- maxA with gait - left foot drop- AFO ordered on today - LE spasms secondary to CVA- stable on Baclofen 10mg QHS - HTN- good control - DM- maintain on current regimen; adjust insulin as needed - DVT px- lovenox - team conference held on today- At last conference held on 01/04, pt was noted to require supervision for eating; Shyla for grooming, modA for bathing, maxA for UB Dressing, transfers, bed mobility, and gait; ambulate 15 feet with HW and AFO; totalA for LB dressing and toileting; maxA for problem solving and memory. On today, pt has progressed to s/u for grooming, Shyla for bathing and dressing; modA for toilet/shower transfers and bed mobility; maxA for toileting ; Shyla for bed/chair/WC transfers; Isreal for WC mobility; ambulating 25 feet with HW/AFO/knee immobilizer at maxA; Shyla for problem solving and memory. Anticipated d/c date remains 12/23/2016. - Patient Problems (1) CVA (cerebral vascular accident) Current Visit: No Status: Acute Qualifiers: CVA mechanism: other Precerebral and cerebral artery: P Laterality of affected vessel: L Qualified Code(s): I63.8 - Other cerebral infarction (2) Hemiparesis affecting left side as late effect of cerebrovascular accident Current Visit: Yes Status: Acute (3) Left foot drop Current Visit: Yes Status: Acute (4) HTN (hypertension) Current Visit: Yes Status: Chronic Qualifiers: Hypertension type: essential hypertension Qualified Code(s): I10 - Essential (primary) hypertension (5) Diabetes Current Visit: Yes Status: Chronic Qualifiers: Diabetes mellitus type: type 2 Diabetes mellitus complication status: with hyperglycemia Diabetes mellitus complication detail: D Diabetic retinopathy severity: D Proliferative retinopathy type: P Diabetes mellitus macular edema: D Diabetes mellitus tank terminal gauger insulin use: with chcf use Laterality: L Chronic kidney disease stage: C Qualified Code(s): E11.65 - Type 2 diabetes mellitus with hyperglycemia; Z79.4 - termite treater (current) use of insulin (6) Abnormality of gait following cerebrovascular accident (CVA) Current Visit: Yes Status: Acute (7) Muscle spasm of left lower extremity Current Visit: Yes Status: Acute Subjective Date of service: 12/11/16 Principal diagnosis: acute CVA at posterior limb of the right internal capsule Interval history: Pt seen after lunch on today, F/U IPR course, s/p acute CVA at posterior limb of the right internal capsule. Pt reports constipation on this AM; last BM on yesterday, requests stool softener Objective - Constitutional Vitals: Vital Signs - 12hr 12/11/16 12/11/16 08:00 09:02 Temperature 97.7 F Pulse Rate 88 Pulse Rate [ 88 Right Brachial] Respiratory 20 Rate Blood Pressure 139/87 Blood Pressure 139/87 [Right Arm] O2 Sat by Pulse 100 Oximetry General appearance: Present: no acute distress - EENT Eyes: EOM intact ENT: hearing intact - Neck Neck: supple, normal ROM - Respiratory Respiratory effort: normal - Gastrointestinal General gastrointestinal: Present: soft, non-tender - Integumentary Integumentary: clear - Musculoskeletal Musculoskeletal: left sided weakness - Psychiatric Psychiatric: appropriate mood/affect, cooperative - Labs CBC & Chem 7: 12/03/16 04:44 12/03/16 04:44 Labs: Abnormal lab results 12/10/16 12/10/16 12/11/16 Range/Units 16:25 21:31 06:16 POC Glucose 200 H 143 H 220 H (70-105)
[2016-12-11] MEDS: COLACE PO SCH ×2 (15:46→21:49)
[2016-12-11] MEDS: LEVEMIR SUB-Q SCH (21:48)
[2016-12-11] MEDS: ZOCOR PO SCH (21:49)
[2016-12-11] MEDS: LIORESAL PO SCH (21:49)
[2016-12-12] MEDS: ASPIRIN PO SCH (08:00)
[2016-12-12] MEDS: LYRICA PO SCH (08:49)
[2016-12-12] MEDS: HCTZ PO SCH (08:49)
[2016-12-12] MEDS: PLAVIX PO SCH (08:50)
[2016-12-12] MEDS: GLUCOPHAGE XR PO SCH ×2 (08:50→23:38)
[2016-12-12] MEDS: NORVASC PO SCH (08:51)
[2016-12-12] MEDS: TRICOR PO SCH (08:51)
[2016-12-12] MEDS: WELLBUTRIN SR PO SCH (08:52)
[2016-12-12] MEDS: PROTONIX PO SCH (08:52)
[2016-12-12] MEDS: COLACE PO SCH ×2 (08:52→23:37)
--- NOTE | 2016-12-12 13:53 | Progress Note ---
Assessment and Plan 50 y.o. left handed male with acute CVA at posterior limb of the right internal capsule; left flaccid hemiparesis, dysarthria, gait dysfunction secondary to CVA - s/p CVA- ASA, statin - gait dysfunction secondary to CVA with left foot drop- ongoing gait training with PT - LE spasms secondary to CVA- Baclofen QHS - HTN- stable - DM- ongoing education due to pt eating snacks in room periodically; continue to follow blood glucose - DVT px- lovenox - Patient Problems (1) CVA (cerebral vascular accident) Current Visit: No Status: Acute Qualifiers: CVA mechanism: other Precerebral and cerebral artery: P Laterality of affected vessel: L Qualified Code(s): I63.8 - Other cerebral infarction (2) Hemiparesis affecting left side as late effect of cerebrovascular accident Current Visit: Yes Status: Acute (3) Left foot drop Current Visit: Yes Status: Acute (4) HTN (hypertension) Current Visit: Yes Status: Chronic Qualifiers: Hypertension type: essential hypertension Qualified Code(s): I10 - Essential (primary) hypertension (5) Diabetes Current Visit: Yes Status: Chronic Qualifiers: Diabetes mellitus type: type 2 Diabetes mellitus complication status: with hyperglycemia Diabetes mellitus complication detail: D Diabetic retinopathy severity: D Proliferative retinopathy type: P Diabetes mellitus macular edema: D Diabetes mellitus bed bug exterminator insulin use: with bed bug exterminator use Laterality: L Chronic kidney disease stage: C Qualified Code(s): E11.65 - Type 2 diabetes mellitus with hyperglycemia; Z79.4 - bed bug exterminator (current) use of insulin (6) Abnormality of gait following cerebrovascular accident (CVA) Current Visit: Yes Status: Acute (7) Muscle spasm of left lower extremity Current Visit: Yes Status: Acute Subjective Date of service: 12/12/16 Principal diagnosis: acute CVA at posterior limb of the right internal capsule Interval history: Pt seen in room on today, F/U IPR course, s/p acute CVA at posterior limb of the right internal capsule. No new complaints; ongoing DM education provided to pt; still has crackers in room causing blood sugars to elevate. +BM on today Objective - Constitutional Vitals: Vital Signs - 12hr 12/12/16 12/12/16 08:00 08:51 Temperature 97.6 F Pulse Rate 83 Pulse Rate [ 83 Right Brachial] Respiratory 18 Rate Blood Pressure 140/90 Blood Pressure 140/90 [Right Arm] O2 Sat by Pulse 99 Oximetry General appearance: Present: no acute distress - EENT Eyes: EOM intact ENT: hearing intact - Neck Neck: supple, normal ROM - Respiratory Respiratory effort: normal Respiratory: bilateral: CTA - Cardiovascular Rhythm: regular Heart Sounds: Present: S1 & S2 Extremities: No edema - Gastrointestinal General gastrointestinal: Present: soft, non-tender, non-distended, normal bowel sounds - Integumentary Integumentary: clear - Musculoskeletal Musculoskeletal: left sided weakness - Psychiatric Psychiatric: appropriate mood/affect, cooperative - Allied health notes Allied health notes reviewed: nursing (min-maxA for morning ADLs), ST (CGA for toilet transfers; dependent for toileting) - Labs CBC & Chem 7: 12/03/16 04:44 12/03/16 04:44 Labs: Abnormal lab results 12/11/16 12/11/16 12/11/16 Range/Units 11:44 16:43 21:16 POC Glucose 140 H 228 H 218 H (70-105) 12/12/16 12/12/16 Range/Units 06:20 11:40 POC Glucose 170 H 252 H (70-105)
[2016-12-12] MEDS: NOVOLOG SUB-Q SCH ×2 (23:35→23:36)
[2016-12-12] MEDS: ZOCOR PO SCH (23:45)
[2016-12-12] MEDS: LEVEMIR SUB-Q SCH (23:46)
[2016-12-12] MEDS: LIORESAL PO SCH (23:46)
[2016-12-13] MEDS: NOVOLOG SUB-Q SCH ×4 (08:03→21:46)
[2016-12-13] MEDS: LOVENOX SUB-Q SCH (08:56)
[2016-12-13] MEDS: GLUCOPHAGE XR PO SCH ×2 (08:56→21:44)
[2016-12-13] MEDS: PLAVIX PO SCH (08:57)
[2016-12-13] MEDS: ASPIRIN PO SCH (08:57)
[2016-12-13] MEDS: HCTZ PO SCH (08:57)
[2016-12-13] MEDS: PROTONIX PO SCH (08:58)
[2016-12-13] MEDS: COLACE PO SCH ×2 (08:58→21:45)
[2016-12-13] MEDS: ZESTRIL PO SCH (08:58)
[2016-12-13] MEDS: NORVASC PO SCH (08:59)
[2016-12-13] MEDS: WELLBUTRIN SR PO SCH (08:59)
[2016-12-13] MEDS: TRICOR PO SCH (09:00)
[2016-12-13] MEDS: LYRICA PO SCH (09:00)
[2016-12-13] MEDS: LIORESAL PO SCH (21:44)
[2016-12-13] MEDS: ZOCOR PO SCH (21:45)
[2016-12-13] MEDS: LEVEMIR SUB-Q SCH (21:45)
[2016-12-14] MEDS: GLUCOPHAGE XR PO SCH ×2 (08:19→21:24)
[2016-12-14] MEDS: ASPIRIN PO SCH (08:20)
[2016-12-14] MEDS: WELLBUTRIN SR PO SCH ×2 (08:20→09:38)
[2016-12-14] MEDS: PLAVIX PO SCH (08:20)
[2016-12-14] MEDS: COLACE PO SCH ×2 (08:20→21:25)
[2016-12-14] MEDS: HCTZ PO SCH (08:20)
[2016-12-14] MEDS: PROTONIX PO SCH (08:21)
[2016-12-14] MEDS: NORVASC PO SCH (08:21)
[2016-12-14] MEDS: ZESTRIL PO SCH (08:21)
[2016-12-14] MEDS: NOVOLOG SUB-Q SCH ×4 (08:22→21:25)
[2016-12-14] MEDS: LOVENOX SUB-Q SCH (08:23)
[2016-12-14] MEDS: TRICOR PO SCH (09:36)
[2016-12-14] MEDS: LYRICA PO SCH (09:37)
[2016-12-14] MEDS: LIORESAL PO SCH (21:24)
[2016-12-14] MEDS: ZOCOR PO SCH (21:24)
[2016-12-14] MEDS: LEVEMIR SUB-Q SCH (21:56)
[2016-12-15 05:06] LABS: Hematocrit 40.1 % (35.5-45.6); Hemoglobin 13.6 gm/dl (11.8-15.2); Mean Corpuscular HGB Conc 34 % (32-34); Mean Corpuscular Hemoglobin 31 pg (28-32); Mean Corpuscular Volume 90 fl (84-94); Platelet Count 278 K/mm3 (140-440); Red Blood Count 4.46 M/mm3 (3.65-5.03); Red Cell Distribution Width 13.1 % (13.2-15.2)
[2016-12-15 05:31] LABS: Anion Gap 19 mmol/L; BUN/Creatinine Ratio 21.81; Blood Urea Nitrogen 24 mg/dL (9-20); Calcium 9.6 mg/dL (8.4-10.2); Carbon Dioxide 24 mmol/L (22-30); Chloride 102.2 mmol/L (98-107); Glucose 217 mg/dL (75-100); Potassium 4.4 mmol/L (3.6-5.0); Sodium 141 mmol/L (137-145)
[2016-12-15] MEDS: COLACE PO SCH ×2 (08:30→21:20)
[2016-12-15] MEDS: NOVOLOG SUB-Q SCH ×4 (09:00→21:19)
[2016-12-15] MEDS: ASPIRIN PO SCH (09:01)
[2016-12-15] MEDS: HCTZ PO SCH (09:02)
[2016-12-15] MEDS: LYRICA PO SCH (09:02)
[2016-12-15] MEDS: PROTONIX PO SCH (09:02)
[2016-12-15] MEDS: TRICOR PO SCH (09:02)
[2016-12-15] MEDS: ZESTRIL PO SCH (09:02)
[2016-12-15] MEDS: PLAVIX PO SCH (09:02)
[2016-12-15] MEDS: GLUCOPHAGE XR PO SCH ×2 (09:03→21:20)
[2016-12-15] MEDS: NORVASC PO SCH (09:04)
[2016-12-15] MEDS: WELLBUTRIN SR PO SCH (09:04)
[2016-12-15] MEDS: LOVENOX SUB-Q SCH (09:05)
--- NOTE | 2016-12-15 12:23 | Progress Note ---
Assessment and Plan 50 y.o. left handed male with acute CVA at posterior limb of the right internal capsule; left flaccid hemiparesis, dysarthria, gait dysfunction secondary to CVA - s/p CVA- ASA, statin - gait dysfunction secondary to CVA with left foot drop- Pending AFO; continue gait training - LE spasms secondary to CVA- Baclofen QHS - HTN- stable - DM- improved blood sugars; continue current regimen and adjust as needed - DVT px- lovenox - Patient Problems (1) CVA (cerebral vascular accident) Current Visit: No Status: Acute Qualifiers: CVA mechanism: other Precerebral and cerebral artery: P Laterality of affected vessel: L Qualified Code(s): I63.8 - Other cerebral infarction (2) Hemiparesis affecting left side as late effect of cerebrovascular accident Current Visit: Yes Status: Acute (3) Left foot drop Current Visit: Yes Status: Acute (4) HTN (hypertension) Current Visit: Yes Status: Chronic Qualifiers: Hypertension type: essential hypertension Qualified Code(s): I10 - Essential (primary) hypertension (5) Diabetes Current Visit: Yes Status: Chronic Qualifiers: Diabetes mellitus type: type 2 Diabetes mellitus complication status: with hyperglycemia Diabetes mellitus complication detail: D Diabetic retinopathy severity: D Proliferative retinopathy type: P Diabetes mellitus macular edema: D Diabetes mellitus termite renewal inspector insulin use: with termite renewal inspector use Laterality: L Chronic kidney disease stage: C Qualified Code(s): E11.65 - Type 2 diabetes mellitus with hyperglycemia; Z79.4 - detention (current) use of insulin (6) Abnormality of gait following cerebrovascular accident (CVA) Current Visit: Yes Status: Acute (7) Muscle spasm of left lower extremity Current Visit: Yes Status: Acute Subjective Date of service: 12/15/16 Principal diagnosis: acute CVA at posterior limb of the right internal capsule Interval history: Pt seen in [facility] this AM, F/U IPR course, s/p acute CVA at posterior limb of the right internal capsule. Continues to tolerate therapies; improved blood sugars over weekend, pt reports eliminating snacks in room Objective - Constitutional Vitals: Vital Signs - 12hr 12/15/16 12/15/16 12/15/16 08:00 09:02 09:04 Temperature 97.6 F Pulse Rate 88 88 Pulse Rate [ 88 Right Brachial] Respiratory 20 Rate Blood Pressure 150/97 150/97 Blood Pressure 150/97 [Right Arm] O2 Sat by Pulse 99 Oximetry General appearance: Present: no acute distress - EENT Eyes: EOM intact ENT: hearing intact - Neck Neck: supple, normal ROM - Respiratory Respiratory effort: normal Respiratory: bilateral: CTA - Cardiovascular Rhythm: regular Heart Sounds: Present: S1 & S2 Extremities: No edema - Gastrointestinal General gastrointestinal: Present: soft, non-tender, non-distended, normal bowel sounds - Integumentary Integumentary: clear - Musculoskeletal Musculoskeletal: left sided weakness (LUE remains flaccid; no pain with PROM in LUE) - Neurologic Neurologic: other (mild facial droop and dysarthria) - Psychiatric Psychiatric: appropriate mood/affect, cooperative - Allied health notes Allied health notes reviewed: nursing (supervision-modA for AM ADLs) - Labs CBC & Chem 7: 12/15/16 04:40 12/15/16 04:40 Labs: Abnormal lab results 12/14/16 12/14/16 12/14/16 Range/Units 12:22 16:57 20:39 RDW (13.2-15.2) % BUN (9-20) mg/dL Glucose (75-100) mg/dL POC Glucose 224 H 175 H 185 H (70-105) 12/15/16 12/15/16 12/15/16 Range/Units 04:40 04:40 05:58 RDW 13.1 L (13.2-15.2) % BUN 24 H (9-20) mg/dL Glucose 217 H (75-100) mg/dL POC Glucose 175 H (70-105) 12/15/16 Range/Units 11:26 RDW (13.2-15.2) % BUN (9-20) mg/dL Glucose (75-100) mg/dL POC Glucose 211 H (70-105)
[2016-12-15] MEDS: LEVEMIR SUB-Q SCH (21:19)
[2016-12-15] MEDS: ZOCOR PO SCH (21:20)
[2016-12-15] MEDS: LIORESAL PO SCH (21:20)
[2016-12-16] MEDS: NORVASC PO SCH (08:10)
[2016-12-16] MEDS: HCTZ PO SCH (08:10)
[2016-12-16] MEDS: PROTONIX PO SCH (08:10)
[2016-12-16] MEDS: LOVENOX SUB-Q SCH (08:10)
[2016-12-16] MEDS: ASPIRIN PO SCH (08:10)
[2016-12-16] MEDS: PLAVIX PO SCH (08:10)
[2016-12-16] MEDS: WELLBUTRIN SR PO SCH ×2 (08:11→10:40)
[2016-12-16] MEDS: COLACE PO SCH (08:12)
[2016-12-16] MEDS: ZESTRIL PO SCH (08:14)
[2016-12-16] MEDS: NOVOLOG SUB-Q SCH ×2 (08:15→12:30)
[2016-12-16] MEDS: GLUCOPHAGE XR PO SCH ×2 (08:17→22:42)
[2016-12-16] MEDS: LYRICA PO SCH ×2 (08:17→10:40)
--- NOTE | 2016-12-16 10:28 | Progress Note ---
Assessment and Plan 50 y.o. left handed male with acute CVA at posterior limb of the right internal capsule; left flaccid hemiparesis, dysarthria, gait dysfunction secondary to CVA - s/p CVA- ASA, statin - gait dysfunction secondary to CVA with left foot drop- ambulating up to 60 feet, maxA - LE spasms secondary to CVA- [place]acl[place] QHS - HTN- stable - DM- stable; continue to follow - DVT px- lovenox - Patient Problems (1) CVA (cerebral vascular accident) Current Visit: No Status: Acute Qualifiers: CVA mechanism: other Precerebral and cerebral artery: P Laterality of affected vessel: L Qualified Code(s): I63.8 - Other cerebral infarction (2) Hemiparesis affecting left side as late effect of cerebrovascular accident Current Visit: Yes Status: Acute (3) Left foot drop Current Visit: Yes Status: Acute (4) HTN (hypertension) Current Visit: Yes Status: Chronic Qualifiers: Hypertension type: essential hypertension Qualified Code(s): I10 - Essential (primary) hypertension (5) Diabetes Current Visit: Yes Status: Chronic Qualifiers: Diabetes mellitus type: type 2 Diabetes mellitus complication status: with hyperglycemia Diabetes mellitus complication detail: D Diabetic retinopathy severity: D Proliferative retinopathy type: P Diabetes mellitus macular edema: D Diabetes mellitus equipment operator intermodal yard insulin use: with equipment operator intermodal yard use Laterality: L Chronic kidney disease stage: C Qualified Code(s): E11.65 - Type 2 diabetes mellitus with hyperglycemia; Z79.4 - technician terminal and repeater (current) use of insulin (6) Abnormality of gait following cerebrovascular accident (CVA) Current Visit: Yes Status: Acute (7) Muscle spasm of left lower extremity Current Visit: Yes Status: Acute Subjective Date of service: 12/16/16 Principal diagnosis: acute CVA at posterior limb of the right internal capsule Interval history: Pt seen in [facility] this AM, F/U IPR course, s/p acute CVA at posterior limb of the right internal capsule. No new complaints on today; continues to sleep well, no further awakening from spasms. Objective - Constitutional Vitals: Vital Signs - 12hr 12/16/16 12/16/16 12/16/16 08:00 08:10 08:14 Temperature 97.7 F Pulse Rate 86 86 Pulse Rate [ 86 Apical] Respiratory 18 Rate Blood Pressure 158/94 158/94 Blood Pressure 158/94 [Right Arm] General appearance: Present: no acute distress - EENT Eyes: EOM intact ENT: hearing intact - Neck Neck: supple, normal ROM - Respiratory Respiratory effort: normal Extremities: No edema - Integumentary Integumentary: clear - Musculoskeletal Musculoskeletal: left sided weakness (2/5 left hip flexion, knee extension; ongoing foot drop) - Psychiatric Psychiatric: appropriate mood/affect, cooperative - Allied health notes Allied health notes reviewed: PT (Shyla for transfers; maxA for gait), OT (Isreal to maxA for ADLs) - Labs CBC & Chem 7: 12/15/16 04:40 12/15/16 04:40 Labs: Abnormal lab results 12/15/16 12/15/16 12/15/16 Range/Units 11:26 16:33 20:43 POC Glucose 211 H 162 H 239 H (70-105) 12/16/16 Range/Units 06:30 POC Glucose 181 H (70-105)
[2016-12-16] MEDS: TRICOR PO SCH (12:27)
[2016-12-16] MEDS: ZOCOR PO SCH (22:41)
[2016-12-16] MEDS: LIORESAL PO SCH (22:41)
[2016-12-16] MEDS: LEVEMIR SUB-Q SCH (22:42)
[2016-12-17] MEDS: NOVOLOG SUB-Q SCH ×6 (09:00→23:30)
[2016-12-17] MEDS: GLUCOPHAGE XR PO SCH ×2 (09:01→21:57)
[2016-12-17] MEDS: PLAVIX PO SCH (09:01)
[2016-12-17] MEDS: HCTZ PO SCH (09:01)
[2016-12-17] MEDS: PROTONIX PO SCH (09:01)
[2016-12-17] MEDS: LOVENOX SUB-Q SCH (09:01)
[2016-12-17] MEDS: ASPIRIN PO SCH (09:01)
[2016-12-17] MEDS: TRICOR PO SCH (09:02)
[2016-12-17] MEDS: WELLBUTRIN SR PO SCH (09:02)
[2016-12-17] MEDS: NORVASC PO SCH (09:02)
[2016-12-17] MEDS: LYRICA PO SCH (09:02)
[2016-12-17] MEDS: ZESTRIL PO SCH (09:03)
[2016-12-17] MEDS: COLACE PO SCH ×2 (09:04→21:57)
--- NOTE | 2016-12-17 16:28 | Progress Note ---
Assessment and Plan 50 y.o. left handed male with acute CVA at posterior limb of the right internal capsule; left flaccid hemiparesis, dysarthria, gait dysfunction secondary to CVA - s/p CVA- ASA, statin; some return of strength at LLE, LUE remains flaccid - gait dysfunction secondary to CVA with left foot drop- ongoing difficulty with weight shifting - LE spasms secondary to CVA- [place] QHS - HTN- stable - DM- stable; continue to follow - DVT px- lovenox - Patient Problems (1) CVA (cerebral vascular accident) Current Visit: No Status: Acute Qualifiers: CVA mechanism: other Precerebral and cerebral artery: P Laterality of affected vessel: L Qualified Code(s): I63.8 - Other cerebral infarction (2) Hemiparesis affecting left side as late effect of cerebrovascular accident Current Visit: Yes Status: Acute (3) Left foot drop Current Visit: Yes Status: Acute (4) HTN (hypertension) Current Visit: Yes Status: Chronic Qualifiers: Hypertension type: essential hypertension Qualified Code(s): I10 - Essential (primary) hypertension (5) Diabetes Current Visit: Yes Status: Chronic Qualifiers: Diabetes mellitus type: type 2 Diabetes mellitus complication status: with hyperglycemia Diabetes mellitus complication detail: D Diabetic retinopathy severity: D Proliferative retinopathy type: P Diabetes mellitus macular edema: D Diabetes mellitus manager long term care insulin use: with retirement use Laterality: L Chronic kidney disease stage: C Qualified Code(s): E11.65 - Type 2 diabetes mellitus with hyperglycemia; Z79.4 - FDC (current) use of insulin (6) Abnormality of gait following cerebrovascular accident (CVA) Current Visit: Yes Status: Acute (7) Muscle spasm of left lower extremity Current Visit: Yes Status: Acute Subjective Date of service: 12/17/16 Principal diagnosis: acute CVA at posterior limb of the right internal capsule Interval history: Pt seen in dining room this afternoon, F/U IPR course, s/p acute CVA at posterior limb of the right internal capsule. Observed episode of coughing on water; pt reports this is the first time since admission; will need to continue to follow closely Objective - Constitutional Vitals: Vital Signs - 12hr 12/17/16 12/17/16 12/17/16 08:00 09:02 10:00 Pulse Rate 90 Pulse Rate [ 85 90 Right Brachial] Respiratory 20 Rate Blood Pressure 133/86 Blood Pressure 142/80 [Right Arm] O2 Sat by Pulse 94 99 Oximetry - EENT Eyes: EOM intact ENT: hearing intact - Neck Neck: supple, normal ROM - Respiratory Respiratory effort: normal Extremities: No edema - Gastrointestinal General gastrointestinal: Present: soft, non-tender, non-distended - Integumentary Integumentary: clear - Musculoskeletal Musculoskeletal: left sided weakness - Psychiatric Psychiatric: appropriate mood/affect, cooperative - Allied health notes Allied health notes reviewed: PT (min-modA for transfers), OT (maxA for clothing management during ADLs; Shyla for toilet transfer) - Labs CBC & Chem 7: 12/15/16 04:40 12/15/16 04:40 Labs: Abnormal lab results 12/16/16 12/17/16 12/17/16 Range/Units 21:33 06:28 12:05 POC Glucose 200 H 185 H 189 H (70-105)
[2016-12-17] MEDS: LEVEMIR SUB-Q SCH (21:53)
[2016-12-17] MEDS: LIORESAL PO SCH (21:57)
[2016-12-17] MEDS: ZOCOR PO SCH (21:57)
[2016-12-18 05:25] LABS: Anion Gap 20 mmol/L; Blood Urea Nitrogen 28 mg/dL (9-20); Calcium 9.6 mg/dL (8.4-10.2); Carbon Dioxide 24 mmol/L (22-30); Chloride 101.5 mmol/L (98-107); Glucose 320 mg/dL (75-100); Potassium 4.3 mmol/L (3.6-5.0); Sodium 141 mmol/L (137-145)
[2016-12-18] MEDS: NORVASC PO SCH (09:03)
[2016-12-18] MEDS: GLUCOPHAGE XR PO SCH ×2 (09:03→21:21)
[2016-12-18] MEDS: PLAVIX PO SCH (09:04)
[2016-12-18] MEDS: TRICOR PO SCH (09:04)
[2016-12-18] MEDS: HCTZ PO SCH (09:04)
[2016-12-18] MEDS: ASPIRIN PO SCH (09:04)
[2016-12-18] MEDS: ZESTRIL PO SCH (09:04)
[2016-12-18] MEDS: PROTONIX PO SCH (09:04)
[2016-12-18] MEDS: COLACE PO SCH ×3 (09:04→21:21)
[2016-12-18] MEDS: LOVENOX SUB-Q SCH (09:05)
[2016-12-18] MEDS: WELLBUTRIN SR PO SCH (09:05)
[2016-12-18] MEDS: NOVOLOG SUB-Q SCH ×4 (09:13→21:39)
[2016-12-18] MEDS: LYRICA PO SCH (12:54)
--- NOTE | 2016-12-18 16:19 | Progress Note ---
Assessment and Plan 50 y.o. left handed male with acute CVA at posterior limb of the right internal capsule; left flaccid hemiparesis, dysarthria, gait dysfunction secondary to CVA - s/p CVA- ASA, statin; some return of strength at LLE, LUE remains flaccid - gait dysfunction secondary to CVA with left foot drop- maxA for gait, up to 35 feet - LE spasms secondary to CVA- [place] QHS - HTN- stable - DM- elevated this AM; follow and increase insulin as needed - DVT px- lovenox - team conference held on today- last conference was held on 12/11; at that time , pt required s/u for grooming, Shyla for bathing and dressing; modA for toilet/ shower transfers and bed mobility; maxA for toileting; Shyla for bed/chair/WC transfers; Isreal for WC mobility; ambulating 25 feet with HW/AFO/knee immobilizer at maxA; Shyla for problem solving and memory. On today, pt remains Shyla for bathing and dressing, maxA for toileting, modA for bed mobility; min- modA for bed/chair/WC transfers, Shyla for toilet/shower transfers; ambulating up to 35 feet maxA with HW and AFO; Isreal for memory and supervision for problem solving. Pt continues to have intermittent bowel/bladder accidents. Anticipated D/C date remains at 12/23/2016. - Patient Problems (1) CVA (cerebral vascular accident) Current Visit: No Status: Acute Qualifiers: CVA mechanism: other Precerebral and cerebral artery: P Laterality of affected vessel: L Qualified Code(s): I63.8 - Other cerebral infarction (2) Hemiparesis affecting left side as late effect of cerebrovascular accident Current Visit: Yes Status: Acute (3) Left foot drop Current Visit: Yes Status: Acute (4) HTN (hypertension) Current Visit: Yes Status: Chronic Qualifiers: Hypertension type: essential hypertension Qualified Code(s): I10 - Essential (primary) hypertension (5) Diabetes Current Visit: Yes Status: Chronic Qualifiers: Diabetes mellitus type: type 2 Diabetes mellitus complication status: with hyperglycemia Diabetes mellitus complication detail: D Diabetic retinopathy severity: D Proliferative retinopathy type: P Diabetes mellitus macular edema: D Diabetes mellitus ferry terminal agent insulin use: with fpc use Laterality: L Chronic kidney disease stage: C Qualified Code(s): E11.65 - Type 2 diabetes mellitus with hyperglycemia; Z79.4 - intermediate project manager (current) use of insulin (6) Abnormality of gait following cerebrovascular accident (CVA) Current Visit: Yes Status: Acute (7) Muscle spasm of left lower extremity Current Visit: Yes Status: Acute (8) Bowel and bladder incontinence Current Visit: Yes Status: Acute Subjective Date of service: 12/18/16 Principal diagnosis: acute CVA at posterior limb of the right internal capsule Interval history: Pt seen in room this AM, F/U IPR course, s/p acute CVA at posterior limb of the right internal capsule. No further coughing reported with thin liquids. Otherwise, no acute events Objective - Constitutional Vitals: Vital Signs - 12hr 12/18/16 12/18/16 12/18/16 08:00 09:03 10:00 Temperature 97.9 F Pulse Rate 88 Pulse Rate [ 88 88 Right Brachial] Respiratory 18 Rate Blood Pressure 126/84 Blood Pressure 126/84 [Right Arm] O2 Sat by Pulse 100 100 Oximetry General appearance: Present: no acute distress, other (sitting up on edge of bed ) - EENT Eyes: EOM intact ENT: hearing intact - Neck Neck: supple, normal ROM - Respiratory Respiratory effort: normal Extremities: No edema - Integumentary Integumentary: clear - Musculoskeletal Musculoskeletal: left sided weakness - Psychiatric Psychiatric: appropriate mood/affect, cooperative - Labs CBC & Chem 7: 12/15/16 04:40 12/18/16 04:44 Labs: Abnormal lab results 12/17/16 12/17/16 12/18/16 Range/Units 16:14 20:56 04:44 BUN 28 H (9-20) mg/dL Glucose 320 H (75-100) mg/dL POC Glucose 119 H 201 H (70-105) 12/18/16 12/18/16 Range/Units 06:06 12:23 BUN (9-20) mg/dL Glucose (75-100) mg/dL POC Glucose 270 H 150 H (70-105)
[2016-12-18] MEDS: ZOCOR PO SCH (21:20)
[2016-12-18] MEDS: LIORESAL PO SCH (21:20)
[2016-12-18] MEDS: LEVEMIR SUB-Q SCH (21:23)
[2016-12-19] MEDS: NOVOLOG SUB-Q SCH ×3 (09:00→18:09)
[2016-12-19] MEDS: NORVASC PO SCH (09:01)
[2016-12-19] MEDS: PLAVIX PO SCH (09:02)
[2016-12-19] MEDS: ASPIRIN PO SCH (09:02)
[2016-12-19] MEDS: GLUCOPHAGE XR PO SCH ×2 (09:02→21:48)
[2016-12-19] MEDS: COLACE PO SCH ×2 (09:02→21:49)
[2016-12-19] MEDS: HCTZ PO SCH (09:03)
[2016-12-19] MEDS: ZESTRIL PO SCH (09:03)
[2016-12-19] MEDS: WELLBUTRIN SR PO SCH (09:03)
[2016-12-19] MEDS: PROTONIX PO SCH (09:03)
[2016-12-19] MEDS: LOVENOX SUB-Q SCH (09:03)
[2016-12-19] MEDS: LYRICA PO SCH (09:07)
[2016-12-19] MEDS: TRICOR PO SCH (09:08)
--- NOTE | 2016-12-19 14:45 | Progress Note ---
Assessment and Plan 50 y.o. left handed male with acute CVA at posterior limb of the right internal capsule; left flaccid hemiparesis, dysarthria, gait dysfunction secondary to CVA - s/p CVA- ASA, statin; ongoing left sided weakness - gait dysfunction secondary to CVA with left foot drop- continue gait training with PT - LE spasms secondary to CVA- [place] QHS - HTN/DM- stable on current regimen - DVT px- lovenox - Patient Problems (1) CVA (cerebral vascular accident) Current Visit: No Status: Acute Qualifiers: CVA mechanism: other Precerebral and cerebral artery: P Laterality of affected vessel: L Qualified Code(s): I63.8 - Other cerebral infarction (2) Hemiparesis affecting left side as late effect of cerebrovascular accident Current Visit: Yes Status: Acute (3) Left foot drop Current Visit: Yes Status: Acute (4) HTN (hypertension) Current Visit: Yes Status: Chronic Qualifiers: Hypertension type: essential hypertension Qualified Code(s): I10 - Essential (primary) hypertension (5) Diabetes Current Visit: Yes Status: Chronic Qualifiers: Diabetes mellitus type: type 2 Diabetes mellitus complication status: with hyperglycemia Diabetes mellitus complication detail: D Diabetic retinopathy severity: D Proliferative retinopathy type: P Diabetes mellitus macular edema: D Diabetes mellitus shelter insulin use: with intermission coordinator use Laterality: L Chronic kidney disease stage: C Qualified Code(s): E11.65 - Type 2 diabetes mellitus with hyperglycemia; Z79.4 - custodial (current) use of insulin (6) Abnormality of gait following cerebrovascular accident (CVA) Current Visit: Yes Status: Acute (7) Muscle spasm of left lower extremity Current Visit: Yes Status: Acute (8) Bowel and bladder incontinence Current Visit: Yes Status: Acute Subjective Date of service: 12/19/16 Principal diagnosis: acute CVA at posterior limb of the right internal capsule Interval history: Pt seen in room this AM, F/U IPR course, s/p acute CVA at posterior limb of the right internal capsule. no acute events overnight; sleeping well, spasms now well controlled Objective - Constitutional Vitals: Vital Signs - 12hr 12/19/16 12/19/16 12/19/16 07:56 09:01 10:00 Temperature 97.5 F L Pulse Rate 88 Pulse Rate [ 88 88 Right Brachial] Respiratory 18 20 Rate Blood Pressure 120/72 Blood Pressure 120/72 [Right Arm] O2 Sat by Pulse 98 98 Oximetry General appearance: Present: no acute distress, other (sitting up in WC) - EENT Eyes: EOM intact ENT: hearing intact - Neck Neck: supple, normal ROM - Respiratory Respiratory effort: normal Respiratory: bilateral: CTA - Cardiovascular Rhythm: regular Heart Sounds: Present: S1 & S2 Extremities: No edema - Gastrointestinal General gastrointestinal: Present: soft, non-tender, non-distended, normal bowel sounds - Integumentary Integumentary: clear - Musculoskeletal Musculoskeletal: left sided weakness - Psychiatric Psychiatric: appropriate mood/affect, cooperative - Allied health notes Allied health notes reviewed: ST (improving memory/recall), OT (SBA for shower/ toilet transfers, dressing) - Labs CBC & Chem 7: 12/15/16 04:40 12/18/16 04:44 Labs: Abnormal lab results 12/18/16 12/18/16 12/19/16 Range/Units 16:32 20:46 05:59 POC Glucose 241 H 199 H 194 H (70-105) 12/19/16 Range/Units 12:20 POC Glucose 197 H (70-105)
[2016-12-19] MEDS: LIORESAL PO SCH (21:48)
[2016-12-19] MEDS: ZOCOR PO SCH (21:48)
[2016-12-19] MEDS: LEVEMIR SUB-Q SCH (21:49)
[2016-12-20] MEDS: NOVOLOG SUB-Q SCH ×5 (08:27→22:52)
[2016-12-20] MEDS: COLACE PO SCH ×2 (08:28→21:56)
[2016-12-20] MEDS: GLUCOPHAGE XR PO SCH ×2 (08:28→21:56)
[2016-12-20] MEDS: NORVASC PO SCH (08:32)
[2016-12-20] MEDS: LOVENOX SUB-Q SCH (08:33)
[2016-12-20] MEDS: WELLBUTRIN SR PO SCH ×2 (08:33→10:31)
[2016-12-20] MEDS: PROTONIX PO SCH (08:33)
[2016-12-20] MEDS: PLAVIX PO SCH (08:33)
[2016-12-20] MEDS: ASPIRIN PO SCH (08:33)
[2016-12-20] MEDS: HCTZ PO SCH (08:33)
[2016-12-20] MEDS: ZESTRIL PO SCH (08:34)
[2016-12-20] MEDS: LYRICA PO SCH ×2 (08:40→10:30)
[2016-12-20] MEDS: TRICOR PO SCH ×2 (08:40→10:31)
[2016-12-20] MEDS: ZOCOR PO SCH (21:56)
[2016-12-20] MEDS: LEVEMIR SUB-Q SCH (21:56)
[2016-12-20] MEDS: LIORESAL PO SCH (21:56)
[2016-12-21] MEDS: ASPIRIN PO SCH (08:20)
[2016-12-21] MEDS: TRICOR PO SCH ×2 (08:21→09:20)
[2016-12-21] MEDS: PLAVIX PO SCH (08:21)
[2016-12-21] MEDS: COLACE PO SCH ×3 (08:22→21:39)
[2016-12-21] MEDS: LYRICA PO SCH ×2 (08:22→09:25)
[2016-12-21] MEDS: WELLBUTRIN SR PO SCH ×2 (08:22→09:25)
[2016-12-21] MEDS: HCTZ PO SCH (08:22)
[2016-12-21] MEDS: PROTONIX PO SCH (08:22)
[2016-12-21] MEDS: LOVENOX SUB-Q SCH (08:22)
[2016-12-21] MEDS: ZESTRIL PO SCH (08:23)
[2016-12-21] MEDS: NORVASC PO SCH (08:23)
[2016-12-21] MEDS: GLUCOPHAGE XR PO SCH ×2 (08:24→21:38)
[2016-12-21] MEDS: NOVOLOG SUB-Q SCH ×4 (08:24→21:38)
--- NOTE | 2016-12-21 18:10 | Progress Note ---
Subjective Date of service: 12/21/16 Principal diagnosis: acute CVA at posterior limb of the right internal capsule Interval history: No overnight issues. 50 y.o. left handed male with acute CVA at posterior limb of the right internal capsule; left flaccid hemiparesis, dysarthria, gait dysfunction secondary to CVA - s/p CVA- ASA, statin; ongoing left sided weakness - gait dysfunction secondary to CVA with left foot drop- continue gait training with PT - LE spasms secondary to CVA- [place]acl[place] QHS - HTN/DM- stable on current regimen - Increased BUN- encouraged more fluid intake. - DVT px- lovenox Objective - Constitutional Vitals: Vital Signs - 12hr 12/21/16 12/21/16 07:30 08:23 Pulse Rate 85 Pulse Rate [ 85 Right Brachial] Respiratory 20 Rate Blood Pressure 146/97 Blood Pressure 146/97 [Right Arm] O2 Sat by Pulse 99 Oximetry General appearance: no acute distress, well-nourished - EENT Eyes: EOM intact ENT: hearing intact - Neck Neck: supple - Respiratory Respiratory effort: normal - Breasts Breasts: Present: deferred - Cardiovascular Heart Sounds: Present: S1 & S2 Extremities: Full ROM - Gastrointestinal General gastrointestinal: soft, tender - Integumentary Integumentary: Present: warm, dry - Musculoskeletal Musculoskeletal: Present: left sided weakness, generalized weakness - Neurologic Neurologic: CNII-XII intact - Psychiatric Psychiatric: appropriate mood/affect, intact judgment & insight - Allied health notes Allied health notes reviewed: nursing, PT, ST, OT FIMS assessment as documented by PT/OT/ST: Grooming Patient cleans teeth/dentures: Yes Patient velasquez/brushes hair: Yes Patient washes, rinses and Yes dries face: Patient washes, rinses and Yes dries hands: Patient shaves: No: no electric shaver available Patient applies make-up: No Patient performs (no make-up/ /4 (100%) shaving): Grooming FIM Score 6. Modified [place] (Needs equipment/ device . Extra time.) Toileting Toileting Device Commode over Toilet Patient able to: Adjust clothes after Patient able to perform: 2/3 (67%) Toileting FIM Score 3. Moderate Assistance (Patient = 50% or more. Some lifting.) Social interaction/Memory/Problem solving Social Interaction FIM Score 6. Mod. [place] (Mostly appropriate. May need meds. No supv.) Memory FIM Score 5. Supervision (Needs cueing <10%, stressful/ unfamiliar situations.) Problem Solving FIM Score 5. Supervision (Needs cueing <10% to solve routine problems.) Transfers Mode of Locomotion: Wheelchair Bed/Chair/Wheelchair Transfers 4. Minimal Assistance (Patient = 75% or more. FIM Score Needs touching.) Toilet Transfers FIM Score 5. Supervision (Needs supervision or cueing.) Patient transferred to: Shower Shower Transfers FIM Score 5. Supervision (Needs supv. or set-up with device.) Locomotion- Stairs Device used on Stairs Handrail/s Number of Stairs Ascended/ 1 Descended Patient used handrail/support: Yes Stairs FIM Score 0. Activity does not occur Locomotion- walk/wheelchair Most Frequent Mode of Wheelchair Locomotion: Ambulation Distance 50 Walking FIM Score 2. Maximal Assistance (Patient = 25% or more. Minimum of 50 ft.) Wheelchair Propulsion Distance 340 Wheelchair FIM Score 5. Supervision (Minimum 150 ft. supv./cues or 50 ft. independently.) Eating Eating Device Adjusted Table Height Eating FIM Score 5. Supervision/Set-Up (Needs help w/ containers , cutting meat, etc.) Dressing-Upper body Patient retrieves clothing Yes items: Patient applies/removes UE No: n/a prosthesis or orthosis: Upper Body Dressing FIM Score 3. Moderate Assistance (Patient = 50% or more) Dressing-lower body Patient retrieves clothing No items: Patient applies/removes LE No: n/a prosthesis or orthosis: Lower Body Dressing FIM Score 3. Moderate Assistance (Patient = 50% or more) - Labs CBC & Chem 7: 12/15/16 04:40 12/18/16 04:44 Labs: Laboratory Results - last 72 hr 12/18/16 12/19/16 12/19/16 20:46 05:59 12:20 POC Glucose 199 H 194 H 197 H 12/19/16 12/19/16 12/20/16 16:52 21:31 06:06 POC Glucose 205 H 223 H 272 H 12/20/16 12/20/16 12/20/16 11:40 16:22 21:25 POC Glucose 165 H 155 H 219 H 12/21/16 12/21/16 12/21/16 06:52 11:38 16:22 POC Glucose 184 H 231 H 139 H Assessment and Plan - Patient Problems (1) Abnormality of gait following cerebrovascular accident (CVA) Current Visit: Yes Status: Acute (2) Bowel and bladder incontinence Current Visit: Yes Status: Acute (3) Hemiparesis affecting left side as late effect of cerebrovascular accident Current Visit: Yes Status: Acute (4) Left foot drop Current Visit: Yes Status: Acute (5) Muscle spasm of left lower extremity Current Visit: Yes Status: Acute (6) Diabetes Current Visit: Yes Status: Chronic Qualifiers: Diabetes mellitus type: type 2 Diabetes mellitus complication status: with hyperglycemia Diabetes mellitus complication detail: D Diabetic retinopathy severity: D Proliferative retinopathy type: P Diabetes mellitus macular edema: D Diabetes mellitus terminal system operator insulin use: with correction use Laterality: L Chronic kidney disease stage: C Qualified Code(s): E11.65 - Type 2 diabetes mellitus with hyperglycemia; Z79.4 - long-term (current) use of insulin (7) HLD (hyperlipidemia) Current Visit: Yes Status: Chronic Qualifiers: Hyperlipidemia type: mixed hyperlipidemia Qualified Code(s): E78.2 - Mixed hyperlipidemia (8) HTN (hypertension) Current Visit: Yes Status: Chronic Qualifiers: Hypertension type: essential hypertension Qualified Code(s): I10 - Essential (primary) hypertension (9) CVA (cerebral vascular accident) Current Visit: No Status: Acute Qualifiers: CVA mechanism: other Precerebral and cerebral artery: P Laterality of affected vessel: L Qualified Code(s): I63.8 - Other cerebral infarction
[2016-12-21] MEDS: LEVEMIR SUB-Q SCH (21:37)
[2016-12-21] MEDS: LIORESAL PO SCH (21:38)
[2016-12-21] MEDS: ZOCOR PO SCH (21:39)
[2016-12-22 05:29] LABS: Hematocrit 38.5 % (35.5-45.6); Mean Corpuscular HGB Conc 34 % (32-34); Mean Corpuscular Hemoglobin 30 pg (28-32); Mean Corpuscular Volume 88 fl (84-94); Platelet Count 268 K/mm3 (140-440); Red Blood Count 4.35 M/mm3 (3.65-5.03); White Blood Count 6.6 K/mm3 (4.5-11.0)
[2016-12-22 05:49] LABS: Anion Gap 19 mmol/L; Blood Urea Nitrogen 16 mg/dL (9-20); Calcium 9.4 mg/dL (8.4-10.2); Carbon Dioxide 25 mmol/L (22-30); Chloride 98.9 mmol/L (98-107); Glucose 288 mg/dL (75-100); Potassium 3.8 mmol/L (3.6-5.0); Sodium 139 mmol/L (137-145)
[2016-12-22] MEDS: NOVOLOG SUB-Q SCH ×5 (08:19→21:32)
[2016-12-22] MEDS: GLUCOPHAGE XR PO SCH ×2 (08:20→21:28)
[2016-12-22] MEDS: WELLBUTRIN SR PO SCH ×2 (08:20→09:57)
[2016-12-22] MEDS: LYRICA PO SCH ×2 (08:21→09:57)
[2016-12-22] MEDS: HCTZ PO SCH (08:21)
[2016-12-22] MEDS: TRICOR PO SCH ×2 (08:21→09:57)
[2016-12-22] MEDS: ASPIRIN PO SCH (08:21)
[2016-12-22] MEDS: PLAVIX PO SCH (08:21)
[2016-12-22] MEDS: LOVENOX SUB-Q SCH (08:22)
[2016-12-22] MEDS: COLACE PO SCH ×2 (08:22→21:27)
[2016-12-22] MEDS: NORVASC PO SCH (08:23)
[2016-12-22] MEDS: ZESTRIL PO SCH (08:23)
[2016-12-22] MEDS: PROTONIX PO SCH (08:23)
--- NOTE | 2016-12-22 14:39 | Discharge Summary ---
Providers - Providers Date of Admission: 12/02/16 22:36 Date of discharge: 12/23/16 Attending physician: MICHELLE Knox 12/02/16 22:40 Occupational Therapy Evaluate and Treat [CONS] Routine Comment: Reason For Exam: s/p cva Physical Therapy Evaluation and Treat [CONS] Routine Comment: Reason For Exam: s/p cva Speech Therapy Evaluation and Treat [CONS] Routine Reason For Exam: s/p cva 12/21/16 14:38 Consult to Physician [CONS] Routine Consulting Provider: PREETI FLORES Reason For Exam: DM management Place consult to:: Dr Flores Notified:: yes Phone number called:: [phone] Was contact made?: Yes Primary care physician: MAILROOM ASSISTANT Hospitalization Reason for admission: Stroke Condition: Good Hospital course: History of Present Illness: 50 y.o. left handed male admitted for CVA work-up after acute onset of left sided weakness. Work-up positive for acute CVA at posterior limb of the right internal capsule. Pt continued with left sided weakness, mild facial droop, dysarthria; also with uncontrolled blood pressure and blood sugars. Hospital Course: He was admitted to the acute rehab unit on 12/03/16 for rehabilitative therapies. He participated in all therapies well. He was maintained on a statin and ASA. Baclofen was helpful for his spasms. Lovenox was given for DVT prophylaxis. He participated well in all therapeis enough to be discharged to a intermediate. Disposition: DC/TX SNF [facility] CERT - Discharge Diagnoses (1) Abnormality of gait following cerebrovascular accident (CVA) Status: Acute (2) Bowel and bladder incontinence Status: Acute (3) Hemiparesis affecting left side as late effect of cerebrovascular accident Status: Acute (4) Left foot drop Status: Acute (5) Muscle spasm of left lower extremity Status: Acute (6) Diabetes Status: Chronic Qualifiers: Diabetes mellitus type: type 2 Diabetes mellitus complication status: with hyperglycemia Diabetes mellitus complication detail: D Diabetic retinopathy severity: D Proliferative retinopathy type: P Diabetes mellitus macular edema: D Diabetes mellitus parts counterman insulin use: with parts counterman use Laterality: L Chronic kidney disease stage: C Qualified Code(s): E11.65 - Type 2 diabetes mellitus with hyperglycemia; Z79.4 - termite control representative (current) use of insulin (7) HLD (hyperlipidemia) Status: Chronic Qualifiers: Hyperlipidemia type: mixed hyperlipidemia Qualified Code(s): E78.2 - Mixed hyperlipidemia (8) HTN (hypertension) Status: Chronic Qualifiers: Hypertension type: essential hypertension Qualified Code(s): I10 - Essential (primary) hypertension (9) CVA (cerebral vascular accident) Status: Acute Qualifiers: CVA mechanism: other Precerebral and cerebral artery: P Laterality of affected vessel: L Qualified Code(s): I63.8 - Other cerebral infarction Core Measure Documentation - Palliative Care Palliative Care/ Comfort Measures: Not Applicable - Core Measures Any of the following diagnoses?: stroke - VTE Discharge Requirements Deep Vein Thrombosis/Pulmonary Embolism Present on Admission: No Anticoagulant overlap therapy prescribed at discharge: Yes - Acute NC Discharge Requirements Aspirin at discharge: Yes ABIGAIL/ARB for LVSD if EF <40%: Yes Statin for LDL = or >100 mg/dl on DC: Yes - Heart Failure Discharge Requirements ABIGAIL/ARB for LVSD if EF <40%: Not Applicable - Stroke Discharge Requirements Statin for LDL = or >70 mg/dl on DC: Yes Anticoag for atrial fib/atrial flutter: Not Applicable Antithrombotic for ischemic stroke: Yes Exam - Physical Exam Narrative exam: General appearance: no acute distress, well-nourished - EENT Eyes: EOM intact ENT: hearing intact - Neck Neck: supple - Respiratory Respiratory effort: normal - Breasts Breasts: Present: deferred - Cardiovascular Heart Sounds: Present: S1 & S2 Extremities: Full ROM - Gastrointestinal General gastrointestinal: soft, tender - Integumentary Integumentary: Present: warm, dry - Musculoskeletal Musculoskeletal: Present: left sided weakness, generalized weakness - Neurologic Neurologic: CNII-XII intact - Psychiatric Psychiatric: appropriate mood/affect, intact judgment & insight - Constitutional Vitals: Temp Pulse Resp BP Pulse Ox 97.3 F L 86 20 139/86 100 12/22/16 07:33 12/22/16 08:23 12/22/16 07:33 12/22/16 08:23 12/22/16 07:33 Plan Activity: advance as tolerated, fall precautions Weight Bearing Status: Full Weight Bearing Diet: low fat, low salt, diabetic Durable Medical Equipment Needed Upon Discharge: Wheelchair, other ([employer]) Follow up with: PRIMARY CARE, [Primary Care Provider] - 7 Days Prescriptions: Baclofen [Lioresal] 10 mg PO QHS #30 tablet Insulin Detemir [Levemir] 25 units SUB-Q QHS #1 vial Simvastatin [Zocor TAB] 20 mg PO QHS #30 tablet amLODIPine [Norvasc] 10 mg PO QDAY #30 tablet buPROPion SR [Wellbutrin SR] 150 mg PO DAILY #30 tablet Clopidogrel [Plavix] 75 mg PO QDAY #30 tablet Docusate Sodium [Colace CAP] 100 mg PO BID #60 capsule Fenofibrate [Tricor] 145 mg PO DAILY #30 tablet Hydrochlorothiazide [HCTZ] 25 mg PO QDAY #30 tablet Lisinopril [Zestril TAB] 40 mg PO QDAY #30 tablet metFORMIN XR [Glucophage XR] 1,000 mg PO BID #60 tablet Pantoprazole [Protonix TAB] 20 mg PO QDAY #30 tablet. Pregabalin [Lyrica] 75 mg PO DAILY #30 capsule
[2016-12-22] MEDS: ZOCOR PO SCH (21:27)
[2016-12-22] MEDS: LIORESAL PO SCH (21:27)
--- NOTE | 2016-12-22 21:28 | Consultation ---
History of Present Illness - Reason for Consult Consult date: 12/22/16 Medical management Requesting physician: MICHELLE BOLTON - History of Present Illness F/u for [id number] -for management Past History Past Medical History: diabetes, hypertension, hyperlipidemia Past Surgical History: Other (right lower lobectomy) Social history: smoking, other (lives with roommate; has local family support). denies: alcohol abuse Family history: diabetes, hypertension Medications and Allergies Allergies Allergy/AdvReac Type Severity Reaction Status Date / Time No Known Allergies Allergy Unverified 11/30/16 01:37 Home Medications Medication Instructions Recorded Confirmed Last Taken Type Aspirin [Aspirin TAB] 325 mg PO QDAY #30 tablet 12/22/16 Unknown Rx Baclofen [Lioresal] 10 mg PO QHS #30 tablet 12/22/16 Unknown Rx Clopidogrel [Plavix] 75 mg PO QDAY #30 tablet 12/22/16 Unknown Rx Docusate Sodium [Colace CAP] 100 mg PO BID #60 capsule 12/22/16 Unknown Rx Fenofibrate [Tricor] 145 mg PO DAILY #30 tablet 12/22/16 Unknown Rx Hydrochlorothiazide [HCTZ] 25 mg PO QDAY #30 tablet 12/22/16 Unknown Rx Insulin Detemir [Levemir] 25 units SUB-Q QHS #1 vial 12/22/16 Unknown Rx Lisinopril [Zestril TAB] 40 mg PO QDAY #30 tablet 12/22/16 Unknown Rx Pantoprazole [Protonix TAB] 20 mg PO QDAY #30 tablet.dr 12/22/16 Unknown Rx Pregabalin [Lyrica] 75 mg PO DAILY #30 capsule 12/22/16 Unknown Rx Simvastatin [Zocor TAB] 20 mg PO QHS #30 tablet 12/22/16 Unknown Rx amLODIPine [Norvasc] 10 mg PO QDAY #30 tablet 12/22/16 Unknown Rx buPROPion SR [Wellbutrin SR] 150 mg PO DAILY #30 tablet 12/22/16 Unknown Rx metFORMIN XR [Glucophage XR] 1,000 mg PO BID #60 tablet 12/22/16 Unknown Rx Active Meds: Active Medications Acetaminophen (Tylenol) 650 mg FEEDTUBE Q4H PRN PRN Reason: Pain MILD(1-3)/Fever >100.5/[place] Last Admin: 12/06/16 11:46 Dose: 650 mg Amlodipine Besylate (Norvasc) 10 mg PO QDAY [facility] Last Admin: 12/22/16 08:23 Dose: 10 mg Aspirin (Aspirin) 325 mg PO QDAY [facility] Last Admin: 12/22/16 08:21 Dose: 325 mg Baclofen (Lioresal) 10 mg PO QHS [facility] Last Admin: 12/21/16 21:38 Dose: 10 mg Bisacodyl (Dulcolax) 10 mg MD QDAY PRN PRN Reason: Constipation unrelieved by MOM Bupropion HCl (Wellbutrin Sr) 150 mg PO DAILY [facility] Last Admin: 12/22/16 09:57 Dose: Not Given Clopidogrel Bisulfate (Plavix) 75 mg PO QDAY [facility] Last Admin: 12/22/16 08:21 Dose: 75 mg Dextrose (D50w (25gm)) 50 ml IV PRN PRN PRN Reason: Hypoglycemia Docusate Sodium (Colace) 100 mg PO BID [facility] Last Admin: 12/22/16 08:22 Dose: Not Given Enoxaparin Sodium (Lovenox) 40 mg SUB-Q QDAY [facility] Last Admin: 12/22/16 08:22 Dose: 40 mg Fenofibrate (Tricor) 145 mg PO DAILY [facility] Last Admin: 12/22/16 09:57 Dose: Not Given Hydrochlorothiazide (Hctz) 25 mg PO QDAY [facility] Last Admin: 12/22/16 08:21 Dose: 25 mg Insulin Aspart (Novolog) 0 units SUB-Q [facility] PRN Reason: Protocol Last Admin: 12/22/16 18:11 Dose: 1 units Insulin [facility] ([facility]) [facility] Admin: 12/21/16 21:37 Dose: 25 units Lisinopril (Zestril) 40 mg PO QDAY [facility] Last Admin: 12/22/16 08:23 Dose: 40 mg Metformin HCl (Glucophage Xr) 1,000 mg PO BID [facility] Last Admin: 12/22/16 08:20 Dose: 1,000 mg Pantoprazole Sodium (Protonix) 20 mg PO QDAY [facility] Last Admin: 12/22/16 08:23 Dose: 20 mg Pregabalin (Lyrica) 75 mg PO DAILY [facility] Last Admin: 12/22/16 09:57 Dose: Not Given Senna (Senokot) 8.6 mg PO Q12H PRN PRN Reason: Laxative Effect Simvastatin (Zocor) 20 mg PO QHS [facility] Last Admin: 12/21/16 21:39 Dose: 20 mg Review of Systems All systems: negative Exam - Constitutional Vitals: Temp Pulse Resp BP Pulse Ox 98.0 F 106 H 20 136/90 100 12/22/16 19:37 12/22/16 19:37 12/22/16 19:37 12/22/16 19:37 12/22/16 19:37 General appearance: Present: no acute distress, well-nourished - EENT Eyes: Present: PERRL ENT: hearing intact, clear oral mucosa - Neck Neck: Present: supple, normal ROM - Respiratory Respiratory effort: normal Respiratory: bilateral: CTA - Cardiovascular Heart Sounds: Present: S1 & S2. Absent: rub, click - Extremities Extremities: pulses symmetrical, No edema Peripheral Pulses: within normal limits - Abdominal General gastrointestinal: Present: soft, non-tender, non-distended, normal bowel sounds Male genitourinary: Present: normal - Integumentary Integumentary: Present: clear, warm, dry - Musculoskeletal Musculoskeletal: gait normal, strength equal bilaterally - Psychiatric Psychiatric: appropriate mood/affect, intact judgment & insight - Neurologic Neurologic: CNII-XII intact, moves all extremities Results - Labs CBC & Chem 7: 12/22/16 04:51 12/22/16 04:51 Labs: Abnormal lab results 12/21/16 12/22/16 12/22/16 Range/Units 21:31 04:51 04:51 RDW 13.0 L (13.2-15.2) % Glucose 288 H (75-100) mg/dL POC Glucose 194 H (70-105) 12/22/16 12/22/16 12/22/16 Range/Units 06:27 12:06 17:34 RDW (13.2-15.2) % Glucose (75-100) mg/dL POC Glucose 231 H 226 H 193 H (70-105) Assessment and Plan - Patient Problems (1) HTN (hypertension) Current Visit: Yes Status: Chronic Qualifiers: Hypertension type: essential hypertension Qualified Code(s): I10 - Essential (primary) hypertension Plan to address problem: Cont antihypertensives (2) IDDM (insulin dependent diabetes mellitus) Current Visit: Yes Status: Chronic Plan to address problem: Will add Levemir for morning coverage also b/c of its half life doesn't cover for 24 hrs.Will add 10 units of Levemir for AM. (3) HLD (hyperlipidemia) Current Visit: Yes Status: Chronic Qualifiers: Hyperlipidemia type: mixed hyperlipidemia Qualified Code(s): E78.2 - Mixed hyperlipidemia Plan to address problem: Cont Statins
[2016-12-22] MEDS: LEVEMIR SUB-Q SCH (21:31)
[2016-12-23 08:12] VITALS: BP 122/80
[2016-12-23] MEDS: NOVOLOG SUB-Q SCH ×2 (08:36→12:47)
[2016-12-23] MEDS: LOVENOX SUB-Q SCH (08:50)
[2016-12-23] MEDS: ZESTRIL PO SCH (08:51)
[2016-12-23] MEDS: PROTONIX PO SCH (08:51)
[2016-12-23] MEDS: NORVASC PO SCH (08:51)
[2016-12-23] MEDS: GLUCOPHAGE XR PO SCH (08:51)
[2016-12-23] MEDS: HCTZ PO SCH (08:52)
[2016-12-23] MEDS: ASPIRIN PO SCH (08:52)
[2016-12-23] MEDS: COLACE PO SCH (08:52)
[2016-12-23] MEDS: PLAVIX PO SCH (08:52)
[2016-12-23] MEDS: LYRICA PO SCH (09:03)
[2016-12-23] MEDS: WELLBUTRIN SR PO SCH (09:03)
[2016-12-23] MEDS: TRICOR PO SCH (09:03)
--- NOTE | 2016-12-23 16:04 | Progress Note ---
Assessment and Plan Assessment and plan: (1) HTN (hypertension) Current Visit: Yes Status: Chronic Qualifiers: Hypertension type: essential hypertension Qualified Code(s): I10 - Essential (primary) hypertension Plan to address problem: Cont antihypertensives (2) IDDM (insulin dependent diabetes mellitus) Current Visit: Yes Status: Chronic Plan to address problem: - Levemir 10 units was added yesterday - Will follow the blood glucose and adjust as needed (3) HLD (hyperlipidemia) Current Visit: Yes Status: Chronic Qualifiers: Hyperlipidemia type: mixed hyperlipidemia Qualified Code(s): E78.2 - Mixed hyperlipidemia Plan to address problem: Cont Statins History Interval history: F/U of DM management Hospitalist Physical - Constitutional Vitals: Temp Pulse Resp BP Pulse Ox 97.5 F L 82 18 122/80 100 12/23/16 08:11 12/23/16 10:00 12/23/16 10:00 12/23/16 08:51 12/23/16 10:00 General appearance: Present: no acute distress, well-nourished Results - Labs CBC & Chem 7: 12/22/16 04:51 12/22/16 04:51 Labs: Laboratory Last Values WBC 6.6 K/mm3 (4.5-11.0) 12/22/16 04:51 RBC 4.35 M/mm3 (3.65-5.03) 12/22/16 04:51 Hgb 13.0 gm/dl (11.8-15.2) 12/22/16 04:51 Hct 38.5 % (35.5-45.6) 12/22/16 04:51 MCV 88 fl (84-94) 12/22/16 04:51 MCH 30 pg (28-32) 12/22/16 04:51 MCHC 34 % (32-34) 12/22/16 04:51 RDW 13.0 % (13.2-15.2) L 12/22/16 04:51 Plt Count 268 K/mm3 (140-440) 12/22/16 04:51 Lymph % (Auto) 25.2 % (13.4-35.0) 12/03/16 04:44 [place] % (Auto) 10.1 % (0.0-7.3) H 12/03/16 04:44 Eos % (Auto) 1.8 % (0.0-4.3) 12/03/16 04:44 Baso % (Auto) 1.2 % (0.0-1.8) 12/03/16 04:44 Lymph # 2.1 K/mm3 (1.2-5.4) 12/03/16 04:44 [place] # 0.9 K/mm3 (0.0-0.8) H 12/03/16 04:44 Eos # 0.2 K/mm3 (0.0-0.4) 12/03/16 04:44 Baso # 0.1 K/mm3 (0.0-0.1) 12/03/16 04:44 Seg Neutrophils % 61.7 % (40.0-70.0) 12/03/16 04:44 Seg Neutrophils # 5.3 K/mm3 (1.8-7.7) 12/03/16 04:44 Sodium 139 mmol/L (137-145) 12/22/16 04:51 Potassium 3.8 mmol/L (3.6-5.0) 12/22/16 04:51 Chloride 98.9 mmol/L (98-107) 12/22/16 04:51 Carbon Dioxide 25 mmol/L (22-30) 12/22/16 04:51 Anion Gap 19 mmol/L 12/22/16 04:51 BUN 16 mg/dL (9-20) 12/22/16 04:51 Creatinine 1.0 mg/dL (0.8-1.5) 12/22/16 04:51 Estimated GFR > 60 ml/min 12/22/16 04:51 BUN/Creatinine Ratio 16.00 % 12/22/16 04:51 Glucose 288 mg/dL (75-100) H 12/22/16 04:51 POC Glucose 290 (70-105) H 12/23/16 12:38 Calcium 9.4 mg/dL (8.4-10.2) 12/22/16 04:51 Total Bilirubin 0.3 mg/dL (0.1-1.2) 12/03/16 04:44 AST 24 units/L (5-40) 12/03/16 04:44 ALT 31 units/L (7-56) 12/03/16 04:44 Alkaline Phosphatase 78 units/L (35-129) 12/03/16 04:44 Total Protein 6.6 g/dL (6.3-8.2) 12/03/16 04:44 Albumin 3.6 g/dL (3.9-5) L 12/03/16 04:44 Albumin/Globulin Ratio 1.2 % 12/03/16 04:44
[2016-12-24] MEDS ORDERED: LEVEMIR SUB-Q SCH (08:00)
== END 2016-12-23 15:30 | DRG 65 ==
LOC: 3B 22:36
PROVIDERS: ADMIT Family Medicine; ATTEND Family Medicine
DX: I63.8 Other cerebral infarction (principal); I69.954 Hemiplegia and hemiparesis following unspecified cerebrovascular disease affecting left non-dominant side; R29.810 Facial weakness; I10 Essential (primary) hypertension; F17.200 Nicotine dependence, unspecified, uncomplicated; R26.9 Unspecified abnormalities of gait and mobility; E78.2 Mixed hyperlipidemia; M21.372 Foot drop, left foot; E11.65 Type 2 diabetes mellitus with hyperglycemia; R32 Unspecified urinary incontinence; R41.0 Disorientation, unspecified; M62.838 Other muscle spasm; F32.9 Major depressive disorder, single episode, unspecified; Z83.3 Family history of diabetes mellitus; Z82.49 Family history of ischemic heart disease and other diseases of the circulatory system; Z79.4 Long term (current) use of insulin; Z79.82 Long term (current) use of aspirin; R47.1 Dysarthria and anarthria
CPT/HCPCS: 36415; 80048; 80053; 82962; 85025; 85027; 90686; J1650; J1815; J1818

== ENCOUNTER 2017-09-28 16:17 | Emergency (ER) | payer MEDICARE ==
--- NOTE | 2017-09-28 18:56 | Emergency Department Report ---
ED CPR HPI - General Chief Complaint: Cardiac Arrest/CPR Stated Complaint: CARDIAC ARREST Time Seen by Provider: 09/28/17 16:49 Source: EMS Mode of arrival: Stretcher Limitations: Other - History of Present Illness Initial Comments: The patient was found apneic and unresponsive in the fdc. Medics proceeded to deploy full resuscitative efforts. The patient was intubated and given usual ACLS protocol. He does not respond to greater than 15 minutes of resuscitation. According to the fdc, per the medics his last known well time was likely greater than 10 minutes. He had no return of spontaneous circulation. Apparently there was emesis upon intubation. MD Complaint: found unresponsive -: minute(s) Place: NH/SNF Bystander CPR Performed: No (not as I am aware) Number of Shocks Delivered: 1 (V. fib 1 per medic) Initial Findings in the Field: unresponsive ROSC in the Field: No Associated Injuries: No Treatments Prior to Arrival: intubation, chest compressions, epinephrine mgs #, atropine mgs # - Related Data Previous Rx's Medication Instructions Recorded Last Taken Type Aspirin [Aspirin TAB] 325 mg PO QDAY #30 tablet 12/22/16 Unknown Rx Baclofen [Lioresal] 10 mg PO QHS #30 tablet 12/22/16 Unknown Rx Clopidogrel [Plavix] 75 mg PO QDAY #30 tablet 12/22/16 Unknown Rx Docusate Sodium [Colace CAP] 100 mg PO BID #60 capsule 12/22/16 Unknown Rx Fenofibrate [Tricor] 145 mg PO DAILY #30 tablet 12/22/16 Unknown Rx Hydrochlorothiazide [HCTZ] 25 mg PO QDAY #30 tablet 12/22/16 Unknown Rx Insulin Detemir [Levemir] 25 units SUB-Q QHS #1 vial 12/22/16 Unknown Rx Lisinopril [Zestril TAB] 40 mg PO QDAY #30 tablet 12/22/16 Unknown Rx Pantoprazole [Protonix TAB] 20 mg PO QDAY #30 tablet. 12/22/16 Unknown Rx Pregabalin [Lyrica] 75 mg PO DAILY #30 capsule 12/22/16 Unknown Rx Simvastatin [Zocor TAB] 20 mg PO QHS #30 tablet 12/22/16 Unknown Rx amLODIPine [Norvasc] 10 mg PO QDAY #30 tablet 12/22/16 Unknown Rx buPROPion SR [Wellbutrin SR] 150 mg PO DAILY #30 tablet 12/22/16 Unknown Rx metFORMIN XR [Glucophage XR] 1,000 mg PO BID #60 tablet 12/22/16 Unknown Rx Allergies Allergy/AdvReac Type Severity Reaction Status Date / Time No Known Allergies Allergy Unverified 11/30/16 01:37 ED Review of Systems ROS: Stated complaint: CARDIAC ARREST Other details as noted in HPI Comment: Unobtainable due to pts medical conditions ED Past Medical Hx - Past Medical History Hx Hypertension: Yes Hx Congestive Heart Failure: No Hx Diabetes: Yes Hx Asthma: No Hx COPD: No Hx HIV: No Additional medical history: High Cholesterol - Social History Smoking Status: Former Smoker - Medications Home Medications: Home Medications Medication Instructions Recorded Confirmed Last Taken Type Aspirin [Aspirin TAB] 325 mg PO QDAY #30 tablet 12/22/16 Unknown Rx Baclofen [Lioresal] 10 mg PO QHS #30 tablet 12/22/16 Unknown Rx Clopidogrel [Plavix] 75 mg PO QDAY #30 tablet 12/22/16 Unknown Rx Docusate Sodium [Colace CAP] 100 mg PO BID #60 capsule 12/22/16 Unknown Rx Fenofibrate [Tricor] 145 mg PO DAILY #30 tablet 12/22/16 Unknown Rx Hydrochlorothiazide [HCTZ] 25 mg PO QDAY #30 tablet 12/22/16 Unknown Rx Insulin Detemir [Levemir] 25 units SUB-Q QHS #1 vial 12/22/16 Unknown Rx Lisinopril [Zestril TAB] 40 mg PO QDAY #30 tablet 12/22/16 Unknown Rx Pantoprazole [Protonix TAB] 20 mg PO QDAY #30 tablet. 12/22/16 Unknown Rx Pregabalin [Lyrica] 75 mg PO DAILY #30 capsule 12/22/16 Unknown Rx Simvastatin [Zocor TAB] 20 mg PO QHS #30 tablet 12/22/16 Unknown Rx amLODIPine [Norvasc] 10 mg PO QDAY #30 tablet 12/22/16 Unknown Rx buPROPion SR [Wellbutrin SR] 150 mg PO DAILY #30 tablet 12/22/16 Unknown Rx metFORMIN XR [Glucophage XR] 1,000 mg PO BID #60 tablet 12/22/16 Unknown Rx ED Physical Exam - General Limitations: Other (extremely pale and lifeless.) - Head Head exam: Present: atraumatic - Eye Eye exam: Absent: scleral icterus - Neck Neck exam: Present: normal inspection - Respiratory Respiratory exam: Present: other (decreased with Ambu bag assist) - Cardiovascular Cardiovascular Exam: Present: other (a few agonal beats on the monitor) - GI/Abdominal GI/Abdominal exam: Present: soft. Absent: distended - Extremities Exam Extremities exam: Present: normal inspection - Neurological Exam Neurological exam: Present: other (GCS 3) ED Course - Reevaluation(s) Reevaluation #1: Doppler exam was performed. There was no evidence of circulation. The patient was pronounced DOA. Further resuscitative efforts were deemed futile. The family was counseled. 09/28/17 18:59 Critical care attestation.: If time is entered above; I have spent that time in minutes in the direct care of this critically ill patient, excluding procedure time. ED Disposition Clinical Impression: Cardiac arrest Disposition: DC-20 Is pt being admited?: No Does the pt Need Aspirin: No Condition: Stable Referrals: PRIMARY CARE, [Primary Care Provider] - 3-5 Days Time of Disposition: 19:01
== END 2017-09-28 19:38 ==
LOC: ED 16:17
DX: I46.9 Cardiac arrest, cause unspecified (principal)